=== PATIENT | male | born 1930 | race Caucasian/White ===

== ENCOUNTER 2016-11-11 21:23 | Inpatient (IN) | payer MEDICARE, OTHER ==
[~2016-11-11] VITALS: Ht 160 cm; Wt 61.9 kg
[2016-11-11] MEDS ORDERED: LEVO25TA4 PO (22:25)
[2016-11-11] MEDS ORDERED: TAMS0.4C97 PO (22:25)
[2016-11-11] MEDS ORDERED: QUET25TA5 PO (22:25)
[2016-11-11] MEDS ORDERED: PRAV80TA2 PO (22:25)
[2016-11-11] MEDS ORDERED: PRED50TA PO (22:25)
[2016-11-11] MEDS ORDERED: BUDE10.2 IH (22:25)
[2016-11-11] MEDS ORDERED: POLY119P4 PO (22:25)
[2016-11-11] MEDS ORDERED: DONE5TAB7 PO (22:25)
[2016-11-11] MEDS ORDERED: CARV6.252 PO (22:25)
[2016-11-11] MEDS ORDERED: LISI-334 PO (22:25)
[2016-11-11] MEDS ORDERED: CHOL10003 PO (22:25)
[2016-11-11] MEDS ORDERED: DOCU-109 PO (22:25)
[2016-11-11] MEDS ORDERED: ASPI81TA50 PO (22:25)
[2016-11-11] MEDS ORDERED: HYDR-2868 PO (22:25)
[2016-11-11] MEDS: LISINOPRIL 20 MG TABLET PO SCH (22:45)
[2016-11-11] MEDS: DONEPEZIL HCL 5 MG TABLET. PO SCH (22:45)
[2016-11-11] MEDS: hydrALAZINE 25 MG TABLET PO SCH (22:46)
--- NOTE | 2016-11-11 23:12 | PDOC ---
Exam Dev Demential Exam: Dev Note: Please also refer to the separate dictated note~for this date of service dictated separately.~Patient seen individually. Discussed the patient with Nursing staff reviewed the chart.~Reviewed interim history and current functioning. Reviewed vital signs,~Labs/ Radiology~and current medications noted below. Continue current treatment with the changes noted in the dictated addendum note Assessment: Vital Signs: Vital Signs Date Time Temp Pulse Resp B/P (MAP) Pulse Ox O2 Delivery O2 Flow Rate FiO2 11/11/16 22:46 92 202/100 Current Medications: Meds: Current Medications Donepezil HCl (Aricept) 5 mg QHS PO Last administered on 11/11/16 22:45; Start 11/11/16 at 22:45 Olanzapine (ZyPREXA ZYDIS) 2.5 mg PRN Q2HR PRN PO PSYCHOSIS Last administered on 11/11/16 22:47; Start 11/11/16 at 22:30 Melatonin 3 mg PRN QHS PRN PO INSOMNIA; Start 11/11/16 at 22:30 Hydralazine HCl (Apresoline) 25 mg BID PO Last administered on 11/11/16 22:46 ; Start 11/11/16 at 22:45 Lisinopril (Prinivil) 20 mg BID PO Last administered on 11/11/16 22:45; Start 11/11/16 at 22:45 Active Scripts Active Reported Flomax (Tamsulosin Hcl) 0.4 Mg Cap.er.24h 0.4 Mg PO DAILY Seroquel (Quetiapine Fumarate) 25 Mg Tablet 25 Mg PO DAILY Pravastatin Sodium 80 Mg Tablet 80 Mg PO DAILY Miralax (Polyethylene Glycol 3350) 119 Gm Powder 17 Gm PO DAILY Lisinopril 20 Mg Tablet 20 Mg PO BID Levothyroxine Sodium 25 Mcg Tablet 25 Mcg PO DAILY07 Hydralazine Hcl 25 Mg Tablet 25 Mg PO BID Donepezil Hcl 5 Mg Tablet 5 Mg PO QHS Colace (Docusate Sodium) 100 Mg Capsule 100 Mg PO PRN BID PRN Vitamin D3 (Cholecalciferol (Vitamin D3)) 1,000 Unit Tablet 1,000 Unit PO DAILY Carvedilol 6.25 Mg Tablet 6.25 Mg PO BIDWMEALS Symbicort 160-4.5 Mcg Inhaler (Budesonide/Formoterol Fumarate) 10.2 Gm Hfa.aer.ad 2 Puff IH BID Aspir-Low (Aspirin) 81 Mg Tablet. 81 Mg PO DAILY Prednisone 50 Mg Tablet 50 Mg PO DAILY 5 Days PATRIZIA HERBERT MD Nov 11, 2016 23:12
[2016-11-12 00:03] VITALS: BP 178/82
[2016-11-12 00:17] LABS: COLOR,URINE YELLOW
[2016-11-12 00:18] LABS: AMORPHOUS SEDIMENT,UR PRESENT /HPF; BACTERIA,URINE FEW /HPF (0-FEW); BILIRUBIN,URINE NEG (NEG); CLARITY,URINE CLEAR; GLUCOSE,URINE 100 mg/dL (NEG); HYALINE CASTS, URINE OCC /HPF; NITRITE,URINE NEG (NEG); RBC,URINE OCC /HPF (0-2); SQUAMOUS EPITHELIAL CELL,UR OCC /LPF; UROBILINOGEN,URINE 0.2 mg/dL (0.2 mg/dL); WBC,URINE OCC /HPF (0-4)
[2016-11-12 06:14] VITALS: BP 139/59
--- NOTE | 2016-11-12 07:22 | PDOC1 ---
History of Present Illness Reason for Visit: Behaviors History of Present Illness Pt sent to [facility] for evaluation in SBH unit due to abnormal behaviors in the setting of dementia. Pt had [facility] [place], [place]. His is present today and is a nurse. Pt was sent here from an OSH ER where he was diagnosed w/ a mild COPD exacerbation. Pt is a poor historian, and his gives all the history. She reports he has been complaining of an upset stomach (mild). He also has been more confused, and his BP seemed to go up when he was started on Seroquel and Aricept. He also has been having more drooling since starting those medicines. Chief Complaint: Dementia Allergies: Coded Allergies: morphine (Verified Allergy, Unknown, 11/11/16) Past Medical History Cardiac: HTN Pulmonary: COPD GI: GERD, Peptic Ulcer disease Past Surgical History: No pertinent history Family History: No pertinent hx Past Social History Smoke: Quit Alcohol: none Drugs: None Lives: with Family Review of Systems Review Of Systems ROS unreliable/unobtainable due to pt's dementia. Allergies: Coded Allergies: morphine (Verified Allergy, Unknown, 11/11/16) Medications Current Medications Donepezil HCl (Aricept) 5 mg QHS PO Last administered on 11/11/16 22:45; Start 11/11/16 at 22:45 Olanzapine (ZyPREXA ZYDIS) 2.5 mg PRN Q2HR PRN PO PSYCHOSIS Last administered on 11/11/16 22:47; Start 11/11/16 at 22:30 Melatonin 3 mg PRN QHS PRN PO INSOMNIA; Start 11/11/16 at 22:30 Hydralazine HCl (Apresoline) 25 mg BID PO Last administered on 11/11/16 22:46 ; Start 11/11/16 at 22:45 Lisinopril (Prinivil) 20 mg BID PO Last administered on 11/11/16 22:45; Start 11/11/16 at 22:45 Active Scripts Active Reported Flomax (Tamsulosin Hcl) 0.4 Mg Cap.er.24h 0.4 Mg PO DAILY Seroquel (Quetiapine Fumarate) 25 Mg Tablet 25 Mg PO DAILY Pravastatin Sodium 80 Mg Tablet 80 Mg PO DAILY Miralax (Polyethylene Glycol 3350) 119 Gm Powder 17 Gm PO DAILY Lisinopril 20 Mg Tablet 20 Mg PO BID Levothyroxine Sodium 25 Mcg Tablet 25 Mcg PO DAILY07 Hydralazine Hcl 25 Mg Tablet 25 Mg PO BID Donepezil Hcl 5 Mg Tablet 5 Mg PO QHS Colace (Docusate Sodium) 100 Mg Capsule 100 Mg PO PRN BID PRN Vitamin D3 (Cholecalciferol (Vitamin D3)) 1,000 Unit Tablet 1,000 Unit PO DAILY Carvedilol 6.25 Mg Tablet 6.25 Mg PO BIDWMEALS Symbicort 160-4.5 Mcg Inhaler (Budesonide/Formoterol Fumarate) 10.2 Gm Hfa.aer.ad 2 Puff IH BID Aspir-Low (Aspirin) 81 Mg Tablet. 81 Mg PO DAILY Prednisone 50 Mg Tablet 50 Mg PO DAILY 5 Days Exam Vital Signs Vital Signs Date Time Temp Pulse Resp B/P (MAP) Pulse Ox O2 Delivery O2 Flow Rate FiO2 11/12/16 06:14 97.9 57 20 139/59 (85) 95 11/12/16 00:03 Room Air General Appearance: Alert, Cooperative, No acute distress HEENT: Atraumatic, PERRLA, EOMI, Mucous membr. moist/pink, Other (Neck supple, full ROM, no JVD, no LAD) Respiratory: Other (Breath sounds diffusely diminished but clear without wheezes) Heart: Regular rate, Normal S1, Normal S2, No murmurs Abdominal: Soft, No tenderness, No hepatospenomegaly Extremities: No edema, Normal pulses, No tenderness/swelling Skin: No rashes, No breakdown Neuro: Other (Gait slow but steady w/ walker, no other focal neuro deficits) Psych/Mental Status: Mood NL Assessment/Plan Assessment/Plan 1. Dementia w/ behavioral disturbances: Per Dr. Alves 2. COPD: Does not appear to be in acute exacerbation. Will d/c prednisone, has only had 1 dose. Hopefully that will reduce chance of PUD and improved BP. 3. HTN: Improved. Will cont to monitor. Cont home meds. If goes back up on Risperdal, may need to d/c all antipsychotics. 4. GERD/PUD: STart Protonix, d/c prednisone. 5. DVT proph: Pt fully ambulatory, no indication for blood thinners. COURSE Allergies Coded Allergies Type Severity Reaction Last Updated Verified morphine Allergy Unknown 11/11/16 Yes Laboratory Tests Test 11/11/16 23:45 Urine Collection Type Unknown Urine Color Yellow Urine Clarity Clear Urine pH 5.5 Urine Specific [place] 1.020 Urine Protein Trace (NEG-TRACE) Urine Glucose (UA) 100 mg/dL (NEG) Urine Ketones (Stick) Neg mg/dL (NEG) Urine Blood Neg (NEG) Urine Nitrite Neg (NEG) Urine Bilirubin Neg (NEG) Urine Urobilinogen Dipstick 0.2 mg/dL (0.2 mg/dL) Urine Leukocyte Esterase Neg (NEG) Urine RBC Occ /HPF (0-2) Urine WBC Occ /HPF (0-4) Urine Squamous Epithelial Cells Occ /LPF Urine Amorphous Sediment Present /HPF Urine Bacteria Few /HPF (0-FEW) Urine Hyaline Casts Occ /HPF Urine Mucus Slight /LPF Current Medications Medications (Trade) Dose Ordered Sig/Jennie Route PRN Reason Start Time Stop Time Status Last Admin Dose Admin Donepezil HCl (Aricept) 5 mg QHS PO 11/11/16 22:45 11/11/16 22:45 Olanzapine (ZyPREXA ZYDIS) 2.5 mg PRN Q2HR PRN PO PSYCHOSIS 11/11/16 22:30 11/11/16 22:47 Melatonin 3 mg PRN QHS PRN PO INSOMNIA 11/11/16 22:30 Hydralazine HCl (Apresoline) 25 mg BID PO 11/11/16 22:45 11/11/16 22:46 Lisinopril (Prinivil) 20 mg BID PO 11/11/16 22:45 11/11/16 22:45 Vital Signs Date Time Temp Pulse Resp B/P (MAP) Pulse Ox O2 Delivery O2 Flow Rate FiO2 11/12/16 06:14 97.9 57 20 139/59 (85) 95 11/12/16 00:03 Room Air HELADIO BLEVINS MD Nov 12, 2016 07:22
[2016-11-12] MEDS ORDERED: DOCUSATE SODIUM 100 MG CAPSULE PO PRN (07:30)
[2016-11-12 07:52] LABS: BASO # 0.1 x10^3/uL (0.0-0.2); BASO % 1 % (0-3); EOS % 0 % (0-3); HEMATOCRIT 47.8 % (39.0-53.0); HEMOGLOBIN 16.3 g/dL (13.0-17.5); LYMPH # 1.1 x10^3/uL (1.0-4.8); LYMPH % 9 % (24-48); MEAN CORPUSCULAR HEMOGLOBIN 30 pg (25-35); MEAN CORPUSCULAR HGB CONC 34 g/dL (31-37); MEAN CORPUSCULAR VOLUME 89 fL (79-100); MONO # 1.2 x10^3/uL (0.0-1.1); MONO % 9 % (0-9); NEUT # 10.3 x10^3uL (1.8-7.7); NEUT % 81 % (31-73); PLATELET COUNT 242 x10^3/uL (140-400); RED BLOOD COUNT 5.38 x10^6/uL (4.30-5.70); RED CELL DISTRIBUTION WIDTH 14.5 % (11.5-14.5); WHITE BLOOD COUNT 12.6 x10^3/uL (4.0-11.0)
[2016-11-12] MEDS: hydrALAZINE 25 MG TABLET PO SCH ×2 (07:56→19:38)
[2016-11-12] MEDS: LISINOPRIL 20 MG TABLET PO SCH ×2 (07:56→19:38)
[2016-11-12] MEDS: CARVEDILOL 6.25 MG TABLET PO SCH ×2 (07:59→17:00)
[2016-11-12] MEDS: CHOLECALCIFEROL (VITAMIN D3) 1,000 UNIT TABLET PO SCH (07:59)
[2016-11-12] MEDS: ASPIRIN ENTERIC COATED 81 MG TABLET.DR. PO SCH (07:59)
[2016-11-12] MEDS: POLYETHYLENE GLYCOL 3350 17 GM PACKET. PO SCH (08:03)
[2016-11-12] MEDS: LEVOTHYROXINE 25 MCG TABLET. PO SCH (08:03)
[2016-11-12] MEDS: TAMSULOSIN 0.4 MG CAP.ER.24H. PO SCH (08:03)
[2016-11-12 08:15] LABS: ALBUMIN 3.5 g/dL (3.4-5.0); ALBUMIN/GLOBULIN RATIO 1.3 (1.0-1.7); CALCIUM 8.8 mg/dL (8.5-10.1); CREATININE 1.1 mg/dL (0.7-1.3); GFR 63.2; POTASSIUM 3.9 mmol/L (3.5-5.1); TOTAL BILIRUBIN 0.6 mg/dL (0.2-1.0); TOTAL PROTEIN 6.1 g/dL (6.4-8.2)
[2016-11-12] MEDS ORDERED: NON FORMULARY ITEM (Budesonide/Formoterol Fumarate (Symbicort 160-4.5 Mcg Inhaler) 2 PUFF) IH SCH (09:00)
[2016-11-12] MEDS ORDERED: predniSONE 10 MG TABLET PO SCH (09:00)
[2016-11-12 10:08] LABS: THYROID STIM HORMONE (TSH) 2.893 uIU/mL (0.358-3.740)
[2016-11-12] MEDS: BUDESONIDE 0.5 MG/2 ML NEBU NEB SCH ×2 (11:11→20:33)
[2016-11-12] MEDS: ALBUTEROL SULFATE 2.5 MG/3 ML NEBU. NEB SCH ×3 (11:11→20:34)
[2016-11-12 12:07] LABS: T3 TOTAL 57 ng/dL (71-180); THYROXINE 7.4 ug/dL (4.5-12.0)
[2016-11-12 17:24] VITALS: BP 152/81
[2016-11-12] MEDS: PRAVASTATIN 20 MG TABLET. PO SCH (19:38)
[2016-11-12] MEDS: DONEPEZIL HCL 5 MG TABLET. PO SCH (19:38)
--- NOTE | 2016-11-12 20:18 | PDOC ---
Exam Dev Demential Exam: Dev Note: Please also refer to the separate dictated note~for this date of service dictated separately.~Patient seen individually. Discussed the patient with Nursing staff reviewed the chart.~Reviewed interim history and current functioning. Reviewed vital signs,~Labs/ Radiology~and current medications noted below. Continue current treatment with the changes noted in the dictated addendum note Assessment: Vital Signs: Vital Signs Date Time Temp Pulse Resp B/P (MAP) Pulse Ox O2 Delivery O2 Flow Rate FiO2 11/12/16 19:38 61 152/81 11/12/16 17:24 98.6 18 94 11/12/16 16:05 Room Air I&O Intake and Output 11/12/16 07:00 Output Total 200 ml Balance -200 ml Output Urine Total 200 ml Labs: Laboratory Tests Test 11/11/16 23:45 11/12/16 07:30 Urine Collection Type Unknown Urine Color Yellow Urine Clarity Clear Urine pH 5.5 Urine Specific [place] 1.020 Urine Protein Trace (NEG-TRACE) Urine Glucose (UA) 100 mg/dL (NEG) Urine Ketones (Stick) Neg mg/dL (NEG) Urine Blood Neg (NEG) Urine Nitrite Neg (NEG) Urine Bilirubin Neg (NEG) Urine Urobilinogen Dipstick 0.2 mg/dL (0.2 mg/dL) Urine Leukocyte Esterase Neg (NEG) Urine RBC Occ /HPF (0-2) Urine WBC Occ /HPF (0-4) Urine Squamous Epithelial Cells Occ /LPF Urine Amorphous Sediment Present /HPF Urine Bacteria Few /HPF (0-FEW) Urine Hyaline Casts Occ /HPF Urine Mucus Slight /LPF White Blood Count 12.6 x10^3/uL (4.0-11.0) H Red Blood Count 5.38 x10^6/uL (4.30-5.70) Hemoglobin 16.3 g/dL (13.0-17.5) Hematocrit 47.8 % (39.0-53.0) Mean Corpuscular Volume 89 fL (79-100) Mean Corpuscular Hemoglobin 30 pg (25-35) Mean Corpuscular Hemoglobin Concent 34 g/dL (31-37) Red Cell Distribution Width 14.5 % (11.5-14.5) Platelet Count 242 x10^3/uL (140-400) Neutrophils (%) (Auto) 81 % (31-73) H Lymphocytes (%) (Auto) 9 % (24-48) L Monocytes (%) (Auto) 9 % (0-9) Eosinophils (%) (Auto) 0 % (0-3) Basophils (%) (Auto) 1 % (0-3) Neutrophils # (Auto) 10.3 x10^3uL (1.8-7.7) H Lymphocytes # (Auto) 1.1 x10^3/uL (1.0-4.8) Monocytes # (Auto) 1.2 x10^3/uL (0.0-1.1) H Eosinophils # (Auto) 0.0 x10^3/uL (0.0-0.7) Basophils # (Auto) 0.1 x10^3/uL (0.0-0.2) Sodium Level 132 mmol/L (136-145) L Potassium Level 3.9 mmol/L (3.5-5.1) Chloride Level 98 mmol/L (98-107) Carbon Dioxide Level 26 mmol/L (21-32) Anion Gap 8 (6-14) Blood Urea Nitrogen 17 mg/dL (8-26) Creatinine 1.1 mg/dL (0.7-1.3) Estimated GFR (Cockcroft-Gault) 63.2 BUN/Creatinine Ratio 15 (6-20) Glucose Level 146 mg/dL (70-99) H Calcium Level 8.8 mg/dL (8.5-10.1) Magnesium Level 2.0 mg/dL (1.8-2.4) Iron Level 55 ug/dL (65-175) L Total Iron Binding Capacity 258 ug/dL (250-450) Iron Saturation 21 % (15-34) Total Bilirubin 0.6 mg/dL (0.2-1.0) Aspartate Amino Transferase (AST) 20 U/L (15-37) Alanine Aminotransferase (ALT) 25 U/L (16-63) Alkaline Phosphatase 90 U/L (46-116) Total Protein 6.1 g/dL (6.4-8.2) L Albumin 3.5 g/dL (3.4-5.0) Albumin/Globulin Ratio 1.3 (1.0-1.7) Triglycerides Level 60 mg/dL (0-150) Cholesterol Level 158 mg/dL (0-200) LDL Cholesterol, Calculated 79 mg/dL (0-100) VLDL Cholesterol, Calculated 12 mg/dL (0-40) Non-HDL Cholesterol Calculated 91 mg/dL (0-129) HDL Cholesterol 67 mg/dL (40-60) H Cholesterol/HDL Ratio 2.0 25-Hydroxy Vitamin D Total Pending Thyroid Stimulating Hormone (TSH) 2.893 uIU/mL (0.358-3.740) Thyroxine (T4) 7.4 ug/dL (4.5-12.0) Total Triiodothyronine (TT3) 57 ng/dL (71-180) L RPR Titer Additional Testing Pending Current Medications: Meds: Current Medications Donepezil HCl (Aricept) 5 mg QHS PO Last administered on 11/12/16 19:38; Start 11/11/16 at 22:45 Olanzapine (ZyPREXA ZYDIS) 2.5 mg PRN Q2HR PRN PO PSYCHOSIS Last administered on 11/11/16 22:47; Start 11/11/16 at 22:30 Melatonin 3 mg PRN QHS PRN PO INSOMNIA; Start 11/11/16 at 22:30 Hydralazine HCl (Apresoline) 25 mg BID PO Last administered on 11/12/16 19:38 ; Start 11/11/16 at 22:45 Lisinopril (Prinivil) 20 mg BID PO Last administered on 11/12/16 19:38; Start 11/11/16 at 22:45 Aspirin (Aspirin Enteric Coated) 81 mg DAILY PO Last administered on 11/12/16 07:59; Start 11/12/16 at 09:00 Carvedilol (Coreg) 6.25 mg BIDWMEALS PO Last administered on 11/12/16 17:00; Start 11/12/16 at 08:00 Vitamin D (Vitamin D3) 1,000 unit DAILY PO Last administered on 11/12/16 07:59 ; Start 11/12/16 at 09:00 Docusate Sodium (Colace) 100 mg PRN BID PRN PO CONSTIPATION; Start 11/12/16 at 07:30 Levothyroxine Sodium (Synthroid) 25 mcg DAILY07 PO Last administered on 08:03; Start 11/12/16 at 07:45 Polyethylene Glycol (miraLAX) 17 gm DAILY PO Last administered on 11/12/16 08: 03; Start 11/12/16 at 09:00 Tamsulosin HCl (Flomax) 0.4 mg DAILY PO Last administered on 11/12/16 08:03; Start 11/12/16 at 09:00 Non-Formulary Medication 2 puff BID IH ; Start 11/12/16 at 09:00; Stop 11/12/16 at 09:00; Status DC Pravastatin Sodium (Pravachol) 80 mg QHS PO Last administered on 11/12/16 19: 38; Start 11/12/16 at 21:00 Prednisone (Prednisone) 50 mg DAILY PO Last administered on 11/12/16 08:03; Start 11/12/16 at 09:00; Stop 11/12/16 at 16:59; Status DC Albuterol Sulfate (Ventolin) 2.5 mg RTQID NEB Last administered on 11/12/16 16 :05; Start 11/12/16 at 12:00 Budesonide (Pulmicort) 0.5 mg RTBID NEB Last administered on 11/12/16 11:11; Start 11/12/16 at 08:30 Pantoprazole Sodium (Protonix) 40 mg DAILYAC PO ; Start 11/13/16 at 07:30 Active Scripts Active Reported Flomax (Tamsulosin Hcl) 0.4 Mg Cap.er.24h 0.4 Mg PO DAILY Seroquel (Quetiapine Fumarate) 25 Mg Tablet 25 Mg PO DAILY Pravastatin Sodium 80 Mg Tablet 80 Mg PO DAILY Miralax (Polyethylene Glycol 3350) 119 Gm Powder 17 Gm PO DAILY Lisinopril 20 Mg Tablet 20 Mg PO BID Levothyroxine Sodium 25 Mcg Tablet 25 Mcg PO DAILY07 Hydralazine Hcl 25 Mg Tablet 25 Mg PO BID Donepezil Hcl 5 Mg Tablet 5 Mg PO QHS Colace (Docusate Sodium) 100 Mg Capsule 100 Mg PO PRN BID PRN Vitamin D3 (Cholecalciferol (Vitamin D3)) 1,000 Unit Tablet 1,000 Unit PO DAILY Carvedilol 6.25 Mg Tablet 6.25 Mg PO BIDWMEALS Symbicort 160-4.5 Mcg Inhaler (Budesonide/Formoterol Fumarate) 10.2 Gm Hfa.aer.ad 2 Puff IH BID Aspir-Low (Aspirin) 81 Mg Tablet. 81 Mg PO DAILY Prednisone 50 Mg Tablet 50 Mg PO DAILY 5 Days PATRIZIA HERBERT MD Nov 12, 2016 20:18
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
[2016-11-12] MEDS: MELATONIN 3 MG TABLET PO PRN (22:26)
[2016-11-13 02:06] LABS: HEMOGLOBIN A1C 5.7 % (4.8-5.6)
--- NOTE | 2016-11-13 05:37 | ACF ---
Admit Criteria Forms Admit Criteria Forms Admit Criteria Forms PSYCHIATRIC DISORDERS Clinical Indications for Inpatient Care (Place 'X' for any and all applicable criteria): Ongoing inpatient care may be needed for 1 or more of the following(1)(2)(3)(4)( 6)(7)(8): [ ]I. Danger to self or others not manageable at lower level of care. [ ]II. Grave disability (eg, inability to perform self care necessary at lower level of care) [ ]III. Agitation or inappropriate behavior interfering with care for primary condition (eg, attempting to discontinue lines or drains prematurely, unable to cooperate with respiratory care) [X]IV. Severe disability or disorder indicated by ALL of the following: [X]a) Severe behavioral health disorder-related symptoms or condition indicated by 1 or more of the following: [X]i) Severe problem with cognition, memory, judgment, or impulse control [ ]ii) Severe clinical manifestations (eg, hallucinations, delusions, other acute psychotic symptoms, edilberto, extreme agitation or anxiety) [X]b) Patient management at lower level of care is not feasible until acute intervention or modification is initiated. Extended stay beyond goal length of stay for the primary condition may be needed untilALLof the following are present(1)(2)(3)(4)722)(23): [ ]a) Danger to self or others is absent or manageable at lower level of care [ ]b) Behavior crisis management, including physical or chemical restraints, is required and is not available at a lower level of care. [ ]c) Behavioral symptoms (e.g., agitation, somnolence, inappropriate behavior) are present, and are not manageable at a lower level of care. [ ]d) Patient cannot understand follow-up treatment and crisis plan. [ ]e) Provider and supports are sufficiently available at lower level of care. [ ]f) Patient can participate (e.g., verify absence of plan for harm) and is in needed of monitoring. The original [facility] [employer] content created by [facility] [employer] has been revised. The portions of the content which have been revised are identified through the use of italic text, and [facility] [employer] has neither reviewed nor approved the modified material. All other unmodified content is copyright [facility]. Please see references footnoted in the original [facility] edition 2014 LULU MCKEON Nov 13, 2016 05:37
[2016-11-13] MEDS: LEVOTHYROXINE 25 MCG TABLET. PO SCH (05:45)
[2016-11-13 06:08] VITALS: BP 142/80
[2016-11-13] MEDS: ALBUTEROL SULFATE 2.5 MG/3 ML NEBU. NEB SCH ×4 (06:15→21:03)
[2016-11-13] MEDS: BUDESONIDE 0.5 MG/2 ML NEBU NEB SCH ×2 (06:15→21:03)
[2016-11-13] MEDS: PANTOPRAZOLE 40 MG TABLET. PO SCH (07:42)
[2016-11-13] MEDS: TAMSULOSIN 0.4 MG CAP.ER.24H. PO SCH (09:06)
[2016-11-13] MEDS: hydrALAZINE 25 MG TABLET PO SCH ×2 (09:06→20:08)
[2016-11-13] MEDS: ASPIRIN ENTERIC COATED 81 MG TABLET.DR. PO SCH (09:06)
[2016-11-13] MEDS: CARVEDILOL 6.25 MG TABLET PO SCH ×2 (09:06→16:24)
[2016-11-13] MEDS: CHOLECALCIFEROL (VITAMIN D3) 1,000 UNIT TABLET PO SCH (09:07)
[2016-11-13] MEDS: LISINOPRIL 20 MG TABLET PO SCH ×2 (09:07→20:08)
[2016-11-13] MEDS: POLYETHYLENE GLYCOL 3350 17 GM PACKET. PO SCH (09:08)
[2016-11-13 16:47] VITALS: BP 151/77
[2016-11-13] MEDS: DONEPEZIL HCL 5 MG TABLET. PO SCH (20:08)
[2016-11-13] MEDS: PRAVASTATIN 20 MG TABLET. PO SCH (20:09)
[2016-11-13] MEDS: MELATONIN 3 MG TABLET PO PRN (20:10)
--- NOTE | 2016-11-13 20:16 | PDOC ---
Exam Dev Demential Exam: Dev Note: Please also refer to the separate dictated note~for this date of service dictated separately.~Patient seen individually. Discussed the patient with Nursing staff reviewed the chart.~Reviewed interim history and current functioning. Reviewed vital signs,~Labs/ Radiology~and current medications noted below. Continue current treatment with the changes noted in the dictated addendum note Assessment: Vital Signs: Vital Signs Date Time Temp Pulse Resp B/P (MAP) Pulse Ox O2 Delivery O2 Flow Rate FiO2 11/13/16 20:08 80 151/77 11/13/16 16:47 97.4 20 95 11/13/16 16:29 Room Air I&O Intake and Output 11/13/16 07:00 Intake Total 540 ml Balance 540 ml Intake Oral 540 ml Current Medications: Meds: Current Medications Donepezil HCl (Aricept) 5 mg QHS PO Last administered on 11/13/16 20:08; Start 11/11/16 at 22:45 Olanzapine (ZyPREXA ZYDIS) 2.5 mg PRN Q2HR PRN PO PSYCHOSIS Last administered on 11/13/16 20:10; Start 11/11/16 at 22:30 Melatonin 3 mg PRN QHS PRN PO INSOMNIA Last administered on 11/13/16 20:10; Start 11/11/16 at 22:30 Hydralazine HCl (Apresoline) 25 mg BID PO Last administered on 11/13/16 20:08 ; Start 11/11/16 at 22:45 Lisinopril (Prinivil) 20 mg BID PO Last administered on 11/13/16 20:08; Start 11/11/16 at 22:45 Aspirin (Aspirin Enteric Coated) 81 mg DAILY PO Last administered on 11/13/16 09:06; Start 11/12/16 at 09:00 Carvedilol (Coreg) 6.25 mg BIDWMEALS PO Last administered on 11/13/16 16:24; Start 11/12/16 at 08:00 Vitamin D (Vitamin D3) 1,000 unit DAILY PO Last administered on 11/13/16 09:07 ; Start 11/12/16 at 09:00 Docusate Sodium (Colace) 100 mg PRN BID PRN PO CONSTIPATION; Start 11/12/16 at 07:30 Levothyroxine Sodium (Synthroid) 25 mcg DAILY07 PO Last administered on 05:45; Start 11/12/16 at 07:45; Stop 11/13/16 at 15:15; Status DC Polyethylene Glycol (miraLAX) 17 gm DAILY PO Last administered on 11/13/16 09: 08; Start 11/12/16 at 09:00 Tamsulosin HCl (Flomax) 0.4 mg DAILY PO Last administered on 11/13/16 09:06; Start 11/12/16 at 09:00 Non-Formulary Medication 2 puff BID IH ; Start 11/12/16 at 09:00; Stop 11/12/16 at 09:00; Status DC Pravastatin Sodium (Pravachol) 80 mg QHS PO Last administered on 11/13/16 20: 09; Start 11/12/16 at 21:00 Prednisone (Prednisone) 50 mg DAILY PO Last administered on 11/12/16 08:03; Start 11/12/16 at 09:00; Stop 11/12/16 at 16:59; Status DC Albuterol Sulfate (Ventolin) 2.5 mg RTQID NEB Last administered on 11/13/16 16 :28; Start 11/12/16 at 12:00 Budesonide (Pulmicort) 0.5 mg RTBID NEB Last administered on 11/13/16 06:15; Start 11/12/16 at 08:30 Pantoprazole Sodium (Protonix) 40 mg DAILYAC PO Last administered on 11/13/16 07:42; Start 11/13/16 at 07:30 Levothyroxine Sodium (Synthroid) 25 mcg DAILY06 PO ; Start 11/14/16 at 06:00 Sertraline HCl (Zoloft) 25 mg DAILY PO ; Start 11/14/16 at 09:00 Donepezil HCl (Aricept) 10 mg DAILY PO ; Start 11/14/16 at 09:00 Active Scripts Active Reported Flomax (Tamsulosin Hcl) 0.4 Mg Cap.er.24h 0.4 Mg PO DAILY Seroquel (Quetiapine Fumarate) 25 Mg Tablet 25 Mg PO DAILY Pravastatin Sodium 80 Mg Tablet 80 Mg PO DAILY Miralax (Polyethylene Glycol 3350) 119 Gm Powder 17 Gm PO DAILY Lisinopril 20 Mg Tablet 20 Mg PO BID Levothyroxine Sodium 25 Mcg Tablet 25 Mcg PO DAILY07 Hydralazine Hcl 25 Mg Tablet 25 Mg PO BID Donepezil Hcl 5 Mg Tablet 5 Mg PO QHS Colace (Docusate Sodium) 100 Mg Capsule 100 Mg PO PRN BID PRN Vitamin D3 (Cholecalciferol (Vitamin D3)) 1,000 Unit Tablet 1,000 Unit PO DAILY Carvedilol 6.25 Mg Tablet 6.25 Mg PO BIDWMEALS Symbicort 160-4.5 Mcg Inhaler (Budesonide/Formoterol Fumarate) 10.2 Gm Hfa.aer.ad 2 Puff IH BID Aspir-Low (Aspirin) 81 Mg Tablet.dr 81 Mg PO DAILY Prednisone 50 Mg Tablet 50 Mg PO DAILY 5 Days PATRIZIA HERBERT MD Nov 13, 2016 20:16
[2016-11-14 05:26] VITALS: BP 147/67
[2016-11-14] MEDS: LEVOTHYROXINE 25 MCG TABLET. PO SCH (05:35)
[2016-11-14] MEDS: ALBUTEROL SULFATE 2.5 MG/3 ML NEBU. NEB SCH ×4 (06:08→20:34)
[2016-11-14] MEDS: BUDESONIDE 0.5 MG/2 ML NEBU NEB SCH ×2 (08:16→20:34)
[2016-11-14] MEDS: ASPIRIN ENTERIC COATED 81 MG TABLET.DR. PO SCH (08:50)
[2016-11-14] MEDS: LISINOPRIL 20 MG TABLET PO SCH ×2 (08:50→20:21)
[2016-11-14] MEDS: CHOLECALCIFEROL (VITAMIN D3) 1,000 UNIT TABLET PO SCH (08:50)
[2016-11-14] MEDS: TAMSULOSIN 0.4 MG CAP.ER.24H. PO SCH (08:50)
[2016-11-14] MEDS: CARVEDILOL 6.25 MG TABLET PO SCH ×2 (08:51→16:01)
[2016-11-14] MEDS: hydrALAZINE 25 MG TABLET PO SCH ×2 (08:51→20:15)
[2016-11-14] MEDS: POLYETHYLENE GLYCOL 3350 17 GM PACKET. PO SCH (08:51)
[2016-11-14] MEDS: DONEPEZIL HCL 10 MG TABLET PO SCH (08:52)
[2016-11-14] MEDS: PANTOPRAZOLE 40 MG TABLET. PO SCH (08:53)
[2016-11-14] MEDS ORDERED: SERTRALINE 25 MG TABLET. PO SCH (09:00)
[2016-11-14 16:22] VITALS: BP 149/86
--- NOTE | 2016-11-14 19:50 | PDOC ---
Exam Dev Demential Exam: Dev Note: Please also refer to the separate dictated note~for this date of service dictated separately.~Patient seen individually. Discussed the patient with Nursing staff reviewed the chart.~Reviewed interim history and current functioning. Reviewed vital signs,~Labs/ Radiology~and current medications noted below. Continue current treatment with the changes noted in the dictated addendum note Assessment: Vital Signs: Vital Signs Date Time Temp Pulse Resp B/P (MAP) Pulse Ox O2 Delivery O2 Flow Rate FiO2 11/14/16 16:22 97.4 81 18 149/86 (107) 99 11/14/16 15:41 Room Air 11/14/16 08:16 2.0 I&O Intake and Output 11/14/16 07:00 Intake Total 960 ml Balance 960 ml Intake Oral 960 ml Current Medications: Meds: Current Medications Donepezil HCl (Aricept) 5 mg QHS PO Last administered on 11/13/16 20:08; Start 11/11/16 at 22:45; Stop 11/14/16 at 18:15; Status DC Olanzapine (ZyPREXA ZYDIS) 2.5 mg PRN Q2HR PRN PO PSYCHOSIS Last administered on 11/13/16 20:10; Start 11/11/16 at 22:30 Melatonin 3 mg PRN QHS PRN PO INSOMNIA Last administered on 11/13/16 20:10; Start 11/11/16 at 22:30 Hydralazine HCl (Apresoline) 25 mg BID PO Last administered on 11/14/16 08:51 ; Start 11/11/16 at 22:45 Lisinopril (Prinivil) 20 mg BID PO Last administered on 11/14/16 08:50; Start 11/11/16 at 22:45 Aspirin (Aspirin Enteric Coated) 81 mg DAILY PO Last administered on 11/14/16 08:50; Start 11/12/16 at 09:00 Carvedilol (Coreg) 6.25 mg BIDWMEALS PO Last administered on 11/14/16 16:01; Start 11/12/16 at 08:00 Vitamin D (Vitamin D3) 1,000 unit DAILY PO Last administered on 11/14/16 08:50 ; Start 11/12/16 at 09:00 Docusate Sodium (Colace) 100 mg PRN BID PRN PO CONSTIPATION; Start 11/12/16 at 07:30 Levothyroxine Sodium (Synthroid) 25 mcg DAILY07 PO Last administered on 05:45; Start 11/12/16 at 07:45; Stop 11/13/16 at 15:15; Status DC Polyethylene Glycol (miraLAX) 17 gm DAILY PO Last administered on 11/14/16 08: 51; Start 11/12/16 at 09:00 Tamsulosin HCl (Flomax) 0.4 mg DAILY PO Last administered on 11/14/16 08:50; Start 11/12/16 at 09:00 Non-Formulary Medication 2 puff BID IH ; Start 11/12/16 at 09:00; Stop 11/12/16 at 09:00; Status DC Pravastatin Sodium (Pravachol) 80 mg QHS PO Last administered on 11/13/16 20: 09; Start 11/12/16 at 21:00 Prednisone (Prednisone) 50 mg DAILY PO Last administered on 11/12/16 08:03; Start 11/12/16 at 09:00; Stop 11/12/16 at 16:59; Status DC Albuterol Sulfate (Ventolin) 2.5 mg RTQID NEB Last administered on 11/14/16 15 :40; Start 11/12/16 at 12:00 Budesonide (Pulmicort) 0.5 mg RTBID NEB Last administered on 11/14/16 08:16; Start 11/12/16 at 08:30 Pantoprazole Sodium (Protonix) 40 mg DAILYAC PO Last administered on 11/14/16 08:53; Start 11/13/16 at 07:30 Levothyroxine Sodium (Synthroid) 25 mcg DAILY06 PO Last administered on 05:35; Start 11/14/16 at 06:00 Sertraline HCl (Zoloft) 25 mg DAILY PO Last administered on 11/14/16 08:52; Start 11/14/16 at 09:00; Stop 11/14/16 at 18:15; Status DC Donepezil HCl (Aricept) 10 mg DAILY PO Last administered on 11/14/16 08:52; Start 11/14/16 at 09:00 Sertraline HCl (Zoloft) 50 mg DAILY PO ; Start 11/15/16 at 09:00 Active Scripts Active Reported Flomax (Tamsulosin Hcl) 0.4 Mg Cap.er.24h 0.4 Mg PO DAILY Seroquel (Quetiapine Fumarate) 25 Mg Tablet 25 Mg PO DAILY Pravastatin Sodium 80 Mg Tablet 80 Mg PO DAILY Miralax (Polyethylene Glycol 3350) 119 Gm Powder 17 Gm PO DAILY Lisinopril 20 Mg Tablet 20 Mg PO BID Levothyroxine Sodium 25 Mcg Tablet 25 Mcg PO DAILY07 Hydralazine Hcl 25 Mg Tablet 25 Mg PO BID Donepezil Hcl 5 Mg Tablet 5 Mg PO QHS Colace (Docusate Sodium) 100 Mg Capsule 100 Mg PO PRN BID PRN Vitamin D3 (Cholecalciferol (Vitamin D3)) 1,000 Unit Tablet 1,000 Unit PO DAILY Carvedilol 6.25 Mg Tablet 6.25 Mg PO BIDWMEALS Symbicort 160-4.5 Mcg Inhaler (Budesonide/Formoterol Fumarate) 10.2 Gm Hfa.aer.ad 2 Puff IH BID Aspir-Low (Aspirin) 81 Mg Tablet. 81 Mg PO DAILY Prednisone 50 Mg Tablet 50 Mg PO DAILY 5 Days PATRIZIA HERBERT MD Nov 14, 2016 19:50
[2016-11-14] MEDS: PRAVASTATIN 20 MG TABLET. PO SCH (20:15)
[2016-11-14] MEDS: MELATONIN 3 MG TABLET PO PRN (20:22)
--- NOTE | 2016-11-15 04:24 | PN ---
DATE: 11/13/2016 This late entry 11/13/2016 covers elements not covered in my initial note. SUBJECTIVE: I met with the patient evening of 11/13/2016, and met with his as well. The patient has been intermittently agitated with some mood lability, received Zyprexa at 15:16 when he was agitated about his walker. He takes his medications in yogurt. Somewhat confused morning of 11/13/2016, felt he was in the police station. REVIEW OF SYSTEMS: Ambulation impaired with walker. No CV, , pulmonary, eye, ENT system symptoms on review. MENTAL STATUS EXAM: Oriented to himself and situation. Speech has some latency, coherent. Abstraction fair, computation impaired, language function intact, attention span short. Mood and affect, lability is improved. Discussed the patient's diagnosis, progress with his . His is quite a bit younger than him and was able to express that if he had a who was about his age, she would not be able to navigate the medical system, advocate for him and provide for his care like she is able to. She herself is a nurse, which is an added advantage for the patient. LABORATORY DATA: Reviewed. IMPRESSION: Unchanged from initial note. PLAN: Increase Aricept from 5 mg a day to 10 mg a day, start Zoloft 25 mg a day. Continue melatonin along with Zyprexa p.r.n. Adjust further as clinically indicated. PATRIZIA HERBERT MD DR: SONIA/marianna JOB#: [id number] / [id number]
[2016-11-15] MEDS: LEVOTHYROXINE 25 MCG TABLET. PO SCH (05:13)
[2016-11-15] MEDS: ALBUTEROL SULFATE 2.5 MG/3 ML NEBU. NEB SCH ×4 (05:20→20:28)
[2016-11-15 06:23] VITALS: BP 163/58
[2016-11-15] MEDS: PANTOPRAZOLE 40 MG TABLET. PO SCH (07:43)
[2016-11-15] MEDS: LISINOPRIL 20 MG TABLET PO SCH ×2 (08:16→20:56)
[2016-11-15] MEDS: CARVEDILOL 6.25 MG TABLET PO SCH ×2 (08:16→15:52)
[2016-11-15] MEDS: DONEPEZIL HCL 10 MG TABLET PO SCH (08:16)
[2016-11-15] MEDS: ASPIRIN ENTERIC COATED 81 MG TABLET.DR. PO SCH (08:16)
[2016-11-15] MEDS: hydrALAZINE 25 MG TABLET PO SCH ×2 (08:17→20:55)
[2016-11-15] MEDS: POLYETHYLENE GLYCOL 3350 17 GM PACKET. PO SCH (08:17)
[2016-11-15] MEDS: CHOLECALCIFEROL (VITAMIN D3) 1,000 UNIT TABLET PO SCH (08:17)
[2016-11-15] MEDS: TAMSULOSIN 0.4 MG CAP.ER.24H. PO SCH (08:19)
[2016-11-15] MEDS: SERTRALINE 50 MG TABLET. PO SCH (08:19)
[2016-11-15] MEDS: BUDESONIDE 0.5 MG/2 ML NEBU NEB SCH ×2 (09:48→20:28)
[2016-11-15 16:27] VITALS: BP 134/74
--- NOTE | 2016-11-15 19:47 | PDOC ---
Exam Dev Demential Exam: Dev Note: Please also refer to the separate dictated note~for this date of service dictated separately.~Patient seen individually. Discussed the patient with Nursing staff reviewed the chart.~Reviewed interim history and current functioning. Reviewed vital signs,~Labs/ Radiology~and current medications noted below. Continue current treatment with the changes noted in the dictated addendum note Assessment: Vital Signs: Vital Signs Date Time Temp Pulse Resp B/P (MAP) Pulse Ox O2 Delivery O2 Flow Rate FiO2 11/15/16 16:27 97.8 62 18 134/74 (94) 96 11/15/16 15:38 Room Air 11/15/16 05:20 0.0 I&O Intake and Output 11/15/16 07:00 Intake Total 1080 ml Balance 1080 ml Intake Oral 1080 ml Current Medications: Meds: Current Medications Donepezil HCl (Aricept) 5 mg QHS PO Last administered on 11/13/16 20:08; Start 11/11/16 at 22:45; Stop 11/14/16 at 18:15; Status DC Olanzapine (ZyPREXA ZYDIS) 2.5 mg PRN Q2HR PRN PO PSYCHOSIS Last administered on 11/15/16 13:02; Start 11/11/16 at 22:30 Melatonin 3 mg PRN QHS PRN PO INSOMNIA Last administered on 11/14/16 20:22; Start 11/11/16 at 22:30 Hydralazine HCl (Apresoline) 25 mg BID PO Last administered on 11/15/16 08:17 ; Start 11/11/16 at 22:45 Lisinopril (Prinivil) 20 mg BID PO Last administered on 11/15/16 08:16; Start 11/11/16 at 22:45 Aspirin (Aspirin Enteric Coated) 81 mg DAILY PO Last administered on 11/15/16 08:16; Start 11/12/16 at 09:00 Carvedilol (Coreg) 6.25 mg BIDWMEALS PO Last administered on 11/15/16 15:52; Start 11/12/16 at 08:00 Vitamin D (Vitamin D3) 1,000 unit DAILY PO Last administered on 11/15/16 08:17 ; Start 11/12/16 at 09:00 Docusate Sodium (Colace) 100 mg PRN BID PRN PO CONSTIPATION; Start 11/12/16 at 07:30 Levothyroxine Sodium (Synthroid) 25 mcg DAILY07 PO Last administered on 05:45; Start 11/12/16 at 07:45; Stop 11/13/16 at 15:15; Status DC Polyethylene Glycol (miraLAX) 17 gm DAILY PO Last administered on 11/15/16 08: 17; Start 11/12/16 at 09:00 Tamsulosin HCl (Flomax) 0.4 mg DAILY PO Last administered on 11/15/16 08:19; Start 11/12/16 at 09:00 Non-Formulary Medication 2 puff BID IH ; Start 11/12/16 at 09:00; Stop 11/12/16 at 09:00; Status DC Pravastatin Sodium (Pravachol) 80 mg QHS PO Last administered on 11/14/16 20: 15; Start 11/12/16 at 21:00 Prednisone (Prednisone) 50 mg DAILY PO Last administered on 11/12/16 08:03; Start 11/12/16 at 09:00; Stop 11/12/16 at 16:59; Status DC Albuterol Sulfate (Ventolin) 2.5 mg RTQID NEB Last administered on 11/15/16 15 :38; Start 11/12/16 at 12:00 Budesonide (Pulmicort) 0.5 mg RTBID NEB Last administered on 11/15/16 09:48; Start 11/12/16 at 08:30 Pantoprazole Sodium (Protonix) 40 mg DAILYAC PO Last administered on 11/15/16 07:43; Start 11/13/16 at 07:30 Levothyroxine Sodium (Synthroid) 25 mcg DAILY06 PO Last administered on 05:13; Start 11/14/16 at 06:00 Sertraline HCl (Zoloft) 25 mg DAILY PO Last administered on 11/14/16 08:52; Start 11/14/16 at 09:00; Stop 11/14/16 at 18:15; Status DC Donepezil HCl (Aricept) 10 mg DAILY PO Last administered on 11/15/16 08:16; Start 11/14/16 at 09:00 Sertraline HCl (Zoloft) 50 mg DAILY PO Last administered on 11/15/16t 08:19; Start 11/15/16 at 09:00 Mirtazapine (Remeron) 7.5 mg QHS PO ; Start 11/15/16 at 21:00 Active Scripts Active Reported Flomax (Tamsulosin Hcl) 0.4 Mg Cap.er.24h 0.4 Mg PO DAILY Seroquel (Quetiapine Fumarate) 25 Mg Tablet 25 Mg PO DAILY Pravastatin Sodium 80 Mg Tablet 80 Mg PO DAILY Miralax (Polyethylene Glycol 3350) 119 Gm Powder 17 Gm PO DAILY Lisinopril 20 Mg Tablet 20 Mg PO BID Levothyroxine Sodium 25 Mcg Tablet 25 Mcg PO DAILY07 Hydralazine Hcl 25 Mg Tablet 25 Mg PO BID Donepezil Hcl 5 Mg Tablet 5 Mg PO QHS Colace (Docusate Sodium) 100 Mg Capsule 100 Mg PO PRN BID PRN Vitamin D3 (Cholecalciferol (Vitamin D3)) 1,000 Unit Tablet 1,000 Unit PO DAILY Carvedilol 6.25 Mg Tablet 6.25 Mg PO BIDWMEALS Symbicort 160-4.5 Mcg Inhaler (Budesonide/Formoterol Fumarate) 10.2 Gm Hfa.aer.ad 2 Puff IH BID Aspir-Low (Aspirin) 81 Mg Tablet. 81 Mg PO DAILY Prednisone 50 Mg Tablet 50 Mg PO DAILY 5 Days PATRIZIA HERBERT MD Nov 15, 2016 19:47
[2016-11-15] MEDS: PRAVASTATIN 20 MG TABLET. PO SCH (20:55)
[2016-11-15] MEDS: MELATONIN 3 MG TABLET PO PRN (20:58)
[2016-11-15] MEDS: MIRTAZAPINE 7.5 MG TABLET. PO SCH (20:58)
[2016-11-16] MEDS: LEVOTHYROXINE 25 MCG TABLET. PO SCH (05:16)
[2016-11-16] MEDS: ALBUTEROL SULFATE 2.5 MG/3 ML NEBU. NEB SCH ×4 (05:20→20:42)
[2016-11-16 05:49] VITALS: BP 159/72
--- NOTE | 2016-11-16 07:03 | PN ---
DATE: 11/14/2016 PSYCHIATRIC PROGRESS NOTE The late entry 11/14/2016, covers elements not covered in my initial note of 11/14/2016. SUBJECTIVE: I met with the patient evening of 11/14/2016 and met with his who was visiting him evening of 11/14/2016. The patient has been anxious, confused, irritable at times. Appetite is poor, withdrawn at other times. REVIEW OF SYSTEMS: No CV, , pulmonary, eye, ENT system symptoms on review. Reliability poor. MENTAL STATUS EXAM: Oriented to himself and situation. Insight, judgment, recent and remote memory, attention, concentration, fund of knowledge poor, consistent with his diagnosis. Mood and affect somewhat anxious, labile. LABORATORY DATA: Reviewed. IMPRESSION: Unchanged from initial note. PLAN: Increase Zoloft from 25 mg a day to 50 mg a day. Continue Aricept 10 mg a day along with melatonin and Zyprexa p.r.n. Adjust further as clinically indicated. MAN Kulwinder HERBERT MD DR: SONIA/marianna JOB#: [id number] / [id number]
[2016-11-16] MEDS: LISINOPRIL 20 MG TABLET PO SCH ×2 (07:57→20:10)
[2016-11-16] MEDS: DONEPEZIL HCL 10 MG TABLET PO SCH (07:57)
[2016-11-16] MEDS: CHOLECALCIFEROL (VITAMIN D3) 1,000 UNIT TABLET PO SCH (07:57)
[2016-11-16] MEDS: POLYETHYLENE GLYCOL 3350 17 GM PACKET. PO SCH (07:57)
[2016-11-16] MEDS: PANTOPRAZOLE 40 MG TABLET. PO SCH (07:58)
[2016-11-16] MEDS: ASPIRIN ENTERIC COATED 81 MG TABLET.DR. PO SCH (07:58)
[2016-11-16] MEDS: CARVEDILOL 6.25 MG TABLET PO SCH ×2 (07:58→17:00)
[2016-11-16] MEDS: hydrALAZINE 25 MG TABLET PO SCH ×2 (07:58→20:11)
[2016-11-16] MEDS: SERTRALINE 50 MG TABLET. PO SCH (07:58)
[2016-11-16] MEDS: TAMSULOSIN 0.4 MG CAP.ER.24H. PO SCH (07:59)
[2016-11-16] MEDS: BUDESONIDE 0.5 MG/2 ML NEBU NEB SCH ×2 (11:17→20:42)
--- NOTE | 2016-11-16 14:37 | RAD ---
CT of the head without contrast, 11/16/2016: History: Altered mental status There is moderate cerebral atrophy. The ventricles are mildly prominent on a compensatory basis. There is no shift of the midline structures. There is no evidence of acute intracranial hemorrhage or mass effect. There is calcific plaquing of the distal internal carotid and vertebral arteries. IMPRESSION: 1. Moderate cerebral atrophy. 2. No acute intracranial abnormality is detected. PQRS Compliance Statement: One or more of the following individualized dose reduction techniques were utilized for this examination: 1. Automated exposure control 2. Adjustment of the mA and/or kV according to patient size 3. Use of iterative reconstruction technique
[2016-11-16 16:01] VITALS: BP 137/67
--- NOTE | 2016-11-16 19:46 | PDOC ---
Exam Dev Demential Exam: Dev Note: Please also refer to the separate dictated note~for this date of service dictated separately.~Patient seen individually. Discussed the patient with Nursing staff reviewed the chart.~Reviewed interim history and current functioning. Reviewed vital signs,~Labs/ Radiology~and current medications noted below. Continue current treatment with the changes noted in the dictated addendum note Assessment: Vital Signs: Vital Signs Date Time Temp Pulse Resp B/P (MAP) Pulse Ox O2 Delivery O2 Flow Rate FiO2 11/16/16 17:00 60 137/67 11/16/16 16:27 97 Nasal Cannula 2.0 11/16/16 16:01 97.5 20 I&O Intake and Output 11/16/16 07:00 Intake Total 600 ml Balance 600 ml Intake Oral 600 ml # Voids 2 # Bowel Movements 1 Current Medications: Meds: Current Medications Donepezil HCl (Aricept) 5 mg QHS PO Last administered on 11/13/16 20:08; Start 11/11/16 at 22:45; Stop 11/14/16 at 18:15; Status DC Olanzapine (ZyPREXA ZYDIS) 2.5 mg PRN Q2HR PRN PO PSYCHOSIS Last administered on 11/15/16 13:02; Start 11/11/16 at 22:30 Melatonin 3 mg PRN QHS PRN PO INSOMNIA Last administered on 11/15/16 20:58; Start 11/11/16 at 22:30 Hydralazine HCl (Apresoline) 25 mg BID PO Last administered on 11/16/16 07:58 ; Start 11/11/16 at 22:45 Lisinopril (Prinivil) 20 mg BID PO Last administered on 11/16/16 07:57; Start 11/11/16 at 22:45 Aspirin (Aspirin Enteric Coated) 81 mg DAILY PO Last administered on 11/16/16 07:58; Start 11/12/16 at 09:00 Carvedilol (Coreg) 6.25 mg BIDWMEALS PO Last administered on 11/16/16 17:00; Start 11/12/16 at 08:00 Vitamin D (Vitamin D3) 1,000 unit DAILY PO Last administered on 11/16/16 07:57 ; Start 11/12/16 at 09:00 Docusate Sodium (Colace) 100 mg PRN BID PRN PO CONSTIPATION; Start 11/12/16 at 07:30 Levothyroxine Sodium (Synthroid) 25 mcg DAILY07 PO Last administered on 05:45; Start 11/12/16 at 07:45; Stop 11/13/16 at 15:15; Status DC Polyethylene Glycol (miraLAX) 17 gm DAILY PO Last administered on 11/16/16 07: 57; Start 11/12/16 at 09:00 Tamsulosin HCl (Flomax) 0.4 mg DAILY PO Last administered on 11/16/16 07:59; Start 11/12/16 at 09:00 Non-Formulary Medication 2 puff BID IH ; Start 11/12/16 at 09:00; Stop 11/12/16 at 09:00; Status DC Pravastatin Sodium (Pravachol) 80 mg QHS PO Last administered on 11/15/16 20: 55; Start 11/12/16 at 21:00 Prednisone (Prednisone) 50 mg DAILY PO Last administered on 11/12/16 08:03; Start 11/12/16 at 09:00; Stop 11/12/16 at 16:59; Status DC Albuterol Sulfate (Ventolin) 2.5 mg RTQID NEB Last administered on 11/16/16 16 :26; Start 11/12/16 at 12:00 Budesonide (Pulmicort) 0.5 mg RTBID NEB Last administered on 11/16/16 11:17; Start 11/12/16 at 08:30 Pantoprazole Sodium (Protonix) 40 mg DAILYAC PO Last administered on 11/16/16 07:58; Start 11/13/16 at 07:30 Levothyroxine Sodium (Synthroid) 25 mcg DAILY06 PO Last administered on 05:16; Start 11/14/16 at 06:00 Sertraline HCl (Zoloft) 25 mg DAILY PO Last administered on 11/14/16 08:52; Start 11/14/16 at 09:00; Stop 11/14/16 at 18:15; Status DC Donepezil HCl (Aricept) 10 mg DAILY PO Last administered on 11/16/16 07:57; Start 11/14/16 at 09:00 Sertraline HCl (Zoloft) 50 mg DAILY PO Last administered on 11/16/16 07:58; Start 11/15/16 at 09:00 Mirtazapine (Remeron) 7.5 mg QHS PO Last administered on 11/15/16 20:58; Start 11/15/16 at 21:00 Active Scripts Active Reported Flomax (Tamsulosin Hcl) 0.4 Mg Cap.er.24h 0.4 Mg PO DAILY Seroquel (Quetiapine Fumarate) 25 Mg Tablet 25 Mg PO DAILY Pravastatin Sodium 80 Mg Tablet 80 Mg PO DAILY Miralax (Polyethylene Glycol 3350) 119 Gm Powder 17 Gm PO DAILY Lisinopril 20 Mg Tablet 20 Mg PO BID Levothyroxine Sodium 25 Mcg Tablet 25 Mcg PO DAILY07 Hydralazine Hcl 25 Mg Tablet 25 Mg PO BID Donepezil Hcl 5 Mg Tablet 5 Mg PO QHS Colace (Docusate Sodium) 100 Mg Capsule 100 Mg PO PRN BID PRN Vitamin D3 (Cholecalciferol (Vitamin D3)) 1,000 Unit Tablet 1,000 Unit PO DAILY Carvedilol 6.25 Mg Tablet 6.25 Mg PO BIDWMEALS Symbicort 160-4.5 Mcg Inhaler (Budesonide/Formoterol Fumarate) 10.2 Gm Hfa.aer.ad 2 Puff IH BID Aspir-Low (Aspirin) 81 Mg Tablet. 81 Mg PO DAILY Prednisone 50 Mg Tablet 50 Mg PO DAILY 5 Days PATRIZIA HERBERT MD Nov 16, 2016 19:46
[2016-11-16] MEDS: MIRTAZAPINE 7.5 MG TABLET. PO SCH (20:10)
[2016-11-16] MEDS: PRAVASTATIN 20 MG TABLET. PO SCH (20:11)
--- NOTE | 2016-11-16 23:23 | PN ---
DATE: 11/15/2016 This late entry 11/15/2016 covers elements not covered in my initial note of 11/15/2016. SUBJECTIVE: I met with the patient the evening of 11/15/2016. The patient slept 1-1/4 hours previous evening. He is quite confused in the morning, refused shower, and breathing treatment in the morning. Agitated all day, believes he is in a car [place] looking for police. Swallow study will be done on Sunday per Dr. Mares since he has had some difficulty swallowing his medications whole. REVIEW OF SYSTEMS: Positive for the swallowing problems. No CV, , pulmonary, eye, ENT system symptoms on review. Reliability poor. MENTAL STATUS EXAM: Oriented to himself. Insight, judgment, very recent and remote memory, attention, concentration, fund of knowledge poor, consistent with his diagnosis. No active suicidal or homicidal ideations. Still remains somewhat anxious, irritable at times. LABORATORY DATA: Reviewed. IMPRESSION: Unchanged from initial note. PLAN: Start Remeron 7.5 mg p.o. at bedtime to help with the insomnia, anxiety, mood symptoms. Maintain rest unchanged. Reviewed drug interactions. Risk/benefit ratio favors no further change. PATRIZIA HERBERT MD DR: SONIA/marianna JOB#: [id number] / [id number]
[2016-11-16] MEDS: MELATONIN 3 MG TABLET PO PRN (23:26)
[2016-11-16] MEDS: ACETAMINOPHEN 325 MG TABLET PO PRN (23:26)
[2016-11-16] MEDS ORDERED: METHYL SALICYLATE/MENTHOL TOPICAL OINTMENT 29GM TUBE. TP PRN (23:30)
[2016-11-16] MEDS ORDERED: MAGNESIUM HYDROXIDE 2,400 MG/30 ML ORAL.SUSP. PO PRN (23:30)
[2016-11-16] MEDS ORDERED: MAG HYDROX/AL HYDROX/SIMETH 30 ML ORAL.SUSP PO PRN (23:30)
[2016-11-17] MEDS: LEVOTHYROXINE 25 MCG TABLET. PO SCH (05:06)
[2016-11-17] MEDS: ALBUTEROL SULFATE 2.5 MG/3 ML NEBU. NEB SCH ×4 (05:25→19:59)
[2016-11-17 06:02] VITALS: BP 175/76
[2016-11-17] MEDS: PANTOPRAZOLE 40 MG TABLET. PO SCH (07:25)
[2016-11-17] MEDS: TAMSULOSIN 0.4 MG CAP.ER.24H. PO SCH (07:25)
[2016-11-17] MEDS: POLYETHYLENE GLYCOL 3350 17 GM PACKET. PO SCH (07:25)
[2016-11-17] MEDS: SERTRALINE 50 MG TABLET. PO SCH (07:25)
[2016-11-17] MEDS: CHOLECALCIFEROL (VITAMIN D3) 1,000 UNIT TABLET PO SCH (07:25)
[2016-11-17] MEDS: ASPIRIN ENTERIC COATED 81 MG TABLET.DR. PO SCH (07:26)
[2016-11-17] MEDS: CARVEDILOL 6.25 MG TABLET PO SCH ×2 (07:26→17:00)
[2016-11-17] MEDS: hydrALAZINE 25 MG TABLET PO SCH (07:27)
[2016-11-17] MEDS: LISINOPRIL 20 MG TABLET PO SCH ×2 (07:27→20:51)
[2016-11-17] MEDS: DONEPEZIL HCL 10 MG TABLET PO SCH (07:27)
[2016-11-17] MEDS: BUDESONIDE 0.5 MG/2 ML NEBU NEB SCH ×2 (09:30→19:59)
[2016-11-17 16:31] VITALS: BP 100/53
--- NOTE | 2016-11-17 19:51 | PDOC ---
Exam Dev Demential Exam: Dev Note: Please also refer to the separate dictated note~for this date of service dictated separately.~Patient seen individually. Discussed the patient with Nursing staff reviewed the chart.~Reviewed interim history and current functioning. Reviewed vital signs,~Labs/ Radiology~and current medications noted below. Continue current treatment with the changes noted in the dictated addendum note Assessment: Vital Signs: Vital Signs Date Time Temp Pulse Resp B/P (MAP) Pulse Ox O2 Delivery O2 Flow Rate FiO2 11/17/16 17:00 55 100/53 11/17/16 16:31 97.7 16 96 11/17/16 15:25 Room Air 11/17/16 05:25 2.0 I&O Intake and Output 11/17/16 07:00 Intake Total 480 ml Balance 480 ml Intake Oral 480 ml Current Medications: Meds: Current Medications Donepezil HCl (Aricept) 5 mg QHS PO Last administered on 11/13/16 20:08; Start 11/11/16 at 22:45; Stop 11/14/16 at 18:15; Status DC Olanzapine (ZyPREXA ZYDIS) 2.5 mg PRN Q2HR PRN PO PSYCHOSIS Last administered on 11/16/16 23:57; Start 11/11/16 at 22:30 Melatonin 3 mg PRN QHS PRN PO INSOMNIA Last administered on 11/16/16 23:26; Start 11/11/16 at 22:30 Hydralazine HCl (Apresoline) 25 mg BID PO Last administered on 11/17/16 07:27 ; Start 11/11/16 at 22:45; Stop 11/17/16 at 16:22; Status DC Lisinopril (Prinivil) 20 mg BID PO Last administered on 11/17/16 07:27; Start 11/11/16 at 22:45 Aspirin (Aspirin Enteric Coated) 81 mg DAILY PO Last administered on 11/17/16 07:26; Start 11/12/16 at 09:00 Carvedilol (Coreg) 6.25 mg BIDWMEALS PO Last administered on 11/17/16 07:26; Start 11/12/16 at 08:00 Vitamin D (Vitamin D3) 1,000 unit DAILY PO Last administered on 11/17/16 07:25 ; Start 11/12/16 at 09:00 Docusate Sodium (Colace) 100 mg PRN BID PRN PO CONSTIPATION; Start 11/12/16 at 07:30 Levothyroxine Sodium (Synthroid) 25 mcg DAILY07 PO Last administered on 05:45; Start 11/12/16 at 07:45; Stop 11/13/16 at 15:15; Status DC Polyethylene Glycol (miraLAX) 17 gm DAILY PO Last administered on 11/17/16 07: 25; Start 11/12/16 at 09:00 Tamsulosin HCl (Flomax) 0.4 mg DAILY PO Last administered on 11/17/16 07:25; Start 11/12/16 at 09:00 Non-Formulary Medication 2 puff BID IH ; Start 11/12/16 at 09:00; Stop 11/12/16 at 09:00; Status DC Pravastatin Sodium (Pravachol) 80 mg QHS PO Last administered on 11/16/16 20: 11; Start 11/12/16 at 21:00 Prednisone (Prednisone) 50 mg DAILY PO Last administered on 11/12/16 08:03; Start 11/12/16 at 09:00; Stop 11/12/16 at 16:59; Status DC Albuterol Sulfate (Ventolin) 2.5 mg RTQID NEB Last administered on 11/17/16 15 :24; Start 11/12/16 at 12:00 Budesonide (Pulmicort) 0.5 mg RTBID NEB Last administered on 11/17/16 09:30; Start 11/12/16 at 08:30 Pantoprazole Sodium (Protonix) 40 mg DAILYAC PO Last administered on 11/17/16 07:25; Start 11/13/16 at 07:30 Levothyroxine Sodium (Synthroid) 25 mcg DAILY06 PO Last administered on 05:06; Start 11/14/16 at 06:00 Sertraline HCl (Zoloft) 25 mg DAILY PO Last administered on 11/14/16 08:52; Start 11/14/16 at 09:00; Stop 11/14/16 at 18:15; Status DC Donepezil HCl (Aricept) 10 mg DAILY PO Last administered on 11/17/16 07:27; Start 11/14/16 at 09:00 Sertraline HCl (Zoloft) 50 mg DAILY PO Last administered on 11/17/16 07:25; Start 11/15/16 at 09:00 Mirtazapine (Remeron) 7.5 mg QHS PO Last administered on 11/16/16 20:10; Start 11/15/16 at 21:00 Acetaminophen (Tylenol) 650 mg PRN Q6HRS PRN PO PAIN / TEMP Last administered on 11/16/16 23:26; Start 11/16/16 at 23:30 Magnesium Hydroxide (Milk Of Magnesia) 2,400 mg PRN DAILY PRN PO CONSTIPATION; Start 11/16/16 at 23:30 Al Hydroxide/Mg Hydroxide (Mylanta Plus Xs) 30 ml PRN AFTMEALHC PRN PO DYSPEPSIA; Start 11/16/16 at 23:30 Multi-Ingredient Ointment (Analgesic [place]) 1 kathryn PRN QID PRN TP MUSCLE PAIN; Start 11/16/16 at 23:30 Hydralazine HCl (Apresoline) 50 mg TID PO ; Start 11/17/16 at 21:00 Active Scripts Active Reported Flomax (Tamsulosin Hcl) 0.4 Mg Cap.er.24h 0.4 Mg PO DAILY Seroquel (Quetiapine Fumarate) 25 Mg Tablet 25 Mg PO DAILY Pravastatin Sodium 80 Mg Tablet 80 Mg PO DAILY Miralax (Polyethylene Glycol 3350) 119 Gm Powder 17 Gm PO DAILY Lisinopril 20 Mg Tablet 20 Mg PO BID Levothyroxine Sodium 25 Mcg Tablet 25 Mcg PO DAILY07 Hydralazine Hcl 25 Mg Tablet 25 Mg PO BID Donepezil Hcl 5 Mg Tablet 5 Mg PO QHS Colace (Docusate Sodium) 100 Mg Capsule 100 Mg PO PRN BID PRN Vitamin D3 (Cholecalciferol (Vitamin D3)) 1,000 Unit Tablet 1,000 Unit PO DAILY Carvedilol 6.25 Mg Tablet 6.25 Mg PO BIDWMEALS Symbicort 160-4.5 Mcg Inhaler (Budesonide/Formoterol Fumarate) 10.2 Gm Hfa.aer.ad 2 Puff IH BID Aspir-Low (Aspirin) 81 Mg Tablet. 81 Mg PO DAILY Prednisone 50 Mg Tablet 50 Mg PO DAILY 5 Days PATRIZIA HERBERT MD Nov 17, 2016 19:51
[2016-11-17] MEDS: MELATONIN 3 MG TABLET PO PRN (20:38)
[2016-11-17] MEDS: PRAVASTATIN 20 MG TABLET. PO SCH (20:38)
[2016-11-17] MEDS: MIRTAZAPINE 7.5 MG TABLET. PO SCH (20:40)
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
[2016-11-18] MEDS: LEVOTHYROXINE 25 MCG TABLET. PO SCH (05:02)
[2016-11-18] MEDS: ALBUTEROL SULFATE 2.5 MG/3 ML NEBU. NEB SCH ×4 (05:20→20:07)
[2016-11-18 06:03] VITALS: BP 150/67
[2016-11-18] MEDS: POLYETHYLENE GLYCOL 3350 17 GM PACKET. PO SCH (07:26)
[2016-11-18] MEDS: CHOLECALCIFEROL (VITAMIN D3) 1,000 UNIT TABLET PO SCH (07:27)
[2016-11-18] MEDS: SERTRALINE 50 MG TABLET. PO SCH (07:28)
[2016-11-18] MEDS: CARVEDILOL 6.25 MG TABLET PO SCH (07:28)
[2016-11-18] MEDS: PANTOPRAZOLE 40 MG TABLET. PO SCH (07:28)
[2016-11-18] MEDS: TAMSULOSIN 0.4 MG CAP.ER.24H. PO SCH (07:28)
[2016-11-18] MEDS: DONEPEZIL HCL 10 MG TABLET PO SCH (07:28)
[2016-11-18] MEDS: LISINOPRIL 20 MG TABLET PO SCH ×2 (07:28→20:03)
[2016-11-18] MEDS: ASPIRIN ENTERIC COATED 81 MG TABLET.DR. PO SCH (07:28)
--- NOTE | 2016-11-18 09:21 | RAD ---
Indication: Short of air and cough. Technique: Upright portable chest radiograph was obtained. No comparison is available. Findings: The lungs are hyperinflated but clear. Decreased vascular markings can be a finding of emphysema, has a basilar predominance. The heart is not enlarged and there is no heart failure. There is atheromatous disease in the thoracic aorta. There are degenerative changes in the spine. Impression: 1. No acute thoracic findings. 2. Hyperinflation with decreased lung markings may be secondary to emphysema.
[2016-11-18] MEDS: BUDESONIDE 0.5 MG/2 ML NEBU NEB SCH ×2 (10:46→20:07)
--- NOTE | 2016-11-18 12:22 | EKG ---
[address] [address] Test Date: 2016-11-17 Test Time: 16:38:14 Pat Name: CONNIE RAMIREZ Department: Room: [address] [place] [address] Gender: Stick Inserter: : 1930 Requested By: SANDRA AVILEZ Order Number: [id number] Reading MD: Jeevan Reeder Measurements Intervals [place] Rate: P: OR: QRS: QRSD: T: QT: QTc: Interpretive Statements SR NON-SPECIFIC ST/T CHANGES Electronically Signed On 11-27-2016 11:14:21 CDT by Jeevan Reeder
[2016-11-18] MEDS: ACETAMINOPHEN 325 MG TABLET PO PRN (12:41)
[2016-11-18 15:46] VITALS: BP 93/55
[2016-11-18] MEDS: MIRTAZAPINE 7.5 MG TABLET. PO SCH (20:01)
[2016-11-18] MEDS: PRAVASTATIN 20 MG TABLET. PO SCH (20:03)
[2016-11-18] MEDS: MELATONIN 3 MG TABLET PO PRN (20:03)
[2016-11-18 20:07] VITALS: BP 130/81
--- NOTE | 2016-11-18 23:16 | PDOC ---
Exam Dev Demential Exam: Dev Note: Please also refer to the separate dictated note~for this date of service dictated separately.~Patient seen individually. Discussed the patient with Nursing staff reviewed the chart.~Reviewed interim history and current functioning. Reviewed vital signs,~Labs/ Radiology~and current medications noted below. Continue current treatment with the changes noted in the dictated addendum note Assessment: Vital Signs: Vital Signs Date Time Temp Pulse Resp B/P (MAP) Pulse Ox O2 Delivery O2 Flow Rate FiO2 11/18/16 20:14 Nasal Cannula 2.0 11/18/16 20:10 96 11/18/16 20:07 51 130/81 (97) 11/18/16 15:46 98.9 19 I&O Intake and Output 11/18/16 07:00 Intake Total 580 ml Balance 580 ml Intake Oral 580 ml # Bowel Movements 1 Current Medications: Meds: Current Medications Donepezil HCl (Aricept) 5 mg QHS PO Last administered on 11/13/16 20:08; Start 11/11/16 at 22:45; Stop 11/14/16 at 18:15; Status DC Olanzapine (ZyPREXA ZYDIS) 2.5 mg PRN Q2HR PRN PO PSYCHOSIS Last administered on 11/17/16 20:50; Start 11/11/16 at 22:30 Melatonin 3 mg PRN QHS PRN PO INSOMNIA Last administered on 11/18/16 20:03; Start 11/11/16 at 22:30 Hydralazine HCl (Apresoline) 25 mg BID PO Last administered on 11/17/16 07:27 ; Start 11/11/16 at 22:45; Stop 11/17/16 at 16:22; Status DC Lisinopril (Prinivil) 20 mg BID PO Last administered on 11/18/16 20:03; Start 11/11/16 at 22:45 Aspirin (Aspirin Enteric Coated) 81 mg DAILY PO Last administered on 11/18/16 07:28; Start 11/12/16 at 09:00 Carvedilol (Coreg) 6.25 mg BIDWMEALS PO Last administered on 11/18/16 07:28; Start 11/12/16 at 08:00; Stop 11/18/16 at 12:17; Status DC Vitamin D (Vitamin D3) 1,000 unit DAILY PO Last administered on 11/18/16 07:27 ; Start 11/12/16 at 09:00 Docusate Sodium (Colace) 100 mg PRN BID PRN PO CONSTIPATION; Start 11/12/16 at 07:30 Levothyroxine Sodium (Synthroid) 25 mcg DAILY07 PO Last administered on 05:45; Start 11/12/16 at 07:45; Stop 11/13/16 at 15:15; Status DC Polyethylene Glycol (miraLAX) 17 gm DAILY PO Last administered on 11/18/16 07: 26; Start 11/12/16 at 09:00 Tamsulosin HCl (Flomax) 0.4 mg DAILY PO Last administered on 11/18/16 07:28; Start 11/12/16 at 09:00 Non-Formulary Medication 2 puff BID IH ; Start 11/12/16 at 09:00; Stop 11/12/16 at 09:00; Status DC Pravastatin Sodium (Pravachol) 80 mg QHS PO Last administered on 11/18/16 20: 03; Start 11/12/16 at 21:00 Prednisone (Prednisone) 50 mg DAILY PO Last administered on 11/12/16 08:03; Start 11/12/16 at 09:00; Stop 11/12/16 at 16:59; Status DC Albuterol Sulfate (Ventolin) 2.5 mg RTQID NEB Last administered on 11/18/16 20 :07; Start 11/12/16 at 12:00 Budesonide (Pulmicort) 0.5 mg RTBID NEB Last administered on 11/18/16 20:07; Start 11/12/16 at 08:30 Pantoprazole Sodium (Protonix) 40 mg DAILYAC PO Last administered on 11/18/16 07:28; Start 11/13/16 at 07:30 Levothyroxine Sodium (Synthroid) 25 mcg DAILY06 PO Last administered on 05:02; Start 11/14/16 at 06:00 Sertraline HCl (Zoloft) 25 mg DAILY PO Last administered on 11/14/16 08:52; Start 11/14/16 at 09:00; Stop 11/14/16 at 18:15; Status DC Donepezil HCl (Aricept) 10 mg DAILY PO Last administered on 11/18/16 07:28; Start 11/14/16 at 09:00 Sertraline HCl (Zoloft) 50 mg DAILY PO Last administered on 11/18/16 07:28; Start 11/15/16 at 09:00 Mirtazapine (Remeron) 7.5 mg QHS PO Last administered on 11/18/16 20:01; Start 11/15/16 at 21:00 Acetaminophen (Tylenol) 650 mg PRN Q6HRS PRN PO PAIN / TEMP Last administered on 11/18/16 12:41; Start 11/16/16 at 23:30 Magnesium Hydroxide (Milk Of Magnesia) 2,400 mg PRN DAILY PRN PO CONSTIPATION; Start 11/16/16 at 23:30 Al Hydroxide/Mg Hydroxide (Mylanta Plus Xs) 30 ml PRN AFTMEALHC PRN PO DYSPEPSIA; Start 11/16/16 at 23:30 Multi-Ingredient Ointment (Analgesic [place]) 1 kathryn PRN QID PRN TP MUSCLE PAIN; Start 11/16/16 at 23:30 Hydralazine HCl (Apresoline) 50 mg TID PO Last administered on 11/18/16 07:27 ; Start 11/17/16 at 21:00; Stop 11/18/16 at 12:16; Status DC Hydralazine HCl (Apresoline) 25 mg TID PO Last administered on 11/18/16 20:03 ; Start 11/18/16 at 14:00 Active Scripts Active Reported Flomax (Tamsulosin Hcl) 0.4 Mg Cap.er.24h 0.4 Mg PO DAILY Seroquel (Quetiapine Fumarate) 25 Mg Tablet 25 Mg PO DAILY Pravastatin Sodium 80 Mg Tablet 80 Mg PO DAILY Miralax (Polyethylene Glycol 3350) 119 Gm Powder 17 Gm PO DAILY Lisinopril 20 Mg Tablet 20 Mg PO BID Levothyroxine Sodium 25 Mcg Tablet 25 Mcg PO DAILY07 Hydralazine Hcl 25 Mg Tablet 25 Mg PO BID Donepezil Hcl 5 Mg Tablet 5 Mg PO QHS Colace (Docusate Sodium) 100 Mg Capsule 100 Mg PO PRN BID PRN Vitamin D3 (Cholecalciferol (Vitamin D3)) 1,000 Unit Tablet 1,000 Unit PO DAILY Carvedilol 6.25 Mg Tablet 6.25 Mg PO BIDWMEALS Symbicort 160-4.5 Mcg Inhaler (Budesonide/Formoterol Fumarate) 10.2 Gm Hfa.aer.ad 2 Puff IH BID Aspir-Low (Aspirin) 81 Mg Tablet. 81 Mg PO DAILY Prednisone 50 Mg Tablet 50 Mg PO DAILY 5 Days PATRIZIA HERBERT MD Nov 18, 2016 23:16
--- NOTE | 2016-11-19 02:50 | PN ---
DATE: 11/17/2016 This late entry 11/17/2016 covers elements not covered in my initial note. SUBJECTIVE: I met with the patient in evening of 11/17/2016 for this assessment. The patient slept just 4-1/4 hours previous evening because he was kept up by his roommate. Since then his roommate has been changed to a different roommate who does sleep at night, which should help. As a consequence of not sleeping well the previous evening, he has been frustrated during the day on 11/17/2016, a little more confused as well, voiced vague suicidal ideation to the nursing staff, "I might as well be ." When further questioned, denied suicidal ideation, just expressed frustration. EKG shows heart rate in the 50s, pulse was 48, O2 sats unremarkable, has some shortness of breath. Chest x-ray has been done per Dr. Mares. I will defer medical management to Dr. Mares. REVIEW OF SYSTEMS: Positive for some tiredness. No CV, , pulmonary, eye system symptoms on review. MENTAL STATUS EXAM: Oriented to himself and situation. Speech has some latency, coherent. Abstraction fair, computation impaired. Language function intact. Attention span short. We talked about his spouse and how she has been very helpful to him. He is very appreciative of the fact that she is much younger than him, is able to help much better than if he had a spouse his own age and was quite coherent in all of this. No active suicidal or homicidal ideation. Short term memory is impaired. LABORATORY DATA: Reviewed. IMPRESSION: Unchanged from initial note. PLAN: Continue current psychotropics, adjust further as clinically indicated. Psychotropics mentioned in my initial note. MAN Kulwinder HERBERT MD DR: SONIA/marianna JOB#: [id number] / [id number]
[2016-11-19] MEDS: ALBUTEROL SULFATE 2.5 MG/3 ML NEBU. NEB SCH ×4 (05:10→20:05)
[2016-11-19 05:38] VITALS: BP 127/55
[2016-11-19] MEDS: LEVOTHYROXINE 25 MCG TABLET. PO SCH (05:51)
[2016-11-19] MEDS: ASPIRIN ENTERIC COATED 81 MG TABLET.DR. PO SCH (07:22)
[2016-11-19] MEDS: PANTOPRAZOLE 40 MG TABLET. PO SCH (07:22)
[2016-11-19] MEDS: POLYETHYLENE GLYCOL 3350 17 GM PACKET. PO SCH (07:22)
[2016-11-19] MEDS: CHOLECALCIFEROL (VITAMIN D3) 1,000 UNIT TABLET PO SCH (07:22)
[2016-11-19] MEDS: TAMSULOSIN 0.4 MG CAP.ER.24H. PO SCH (07:22)
[2016-11-19] MEDS: SERTRALINE 50 MG TABLET. PO SCH (07:22)
[2016-11-19] MEDS: DONEPEZIL HCL 10 MG TABLET PO SCH (07:23)
[2016-11-19] MEDS: LISINOPRIL 20 MG TABLET PO SCH ×2 (07:24→20:52)
[2016-11-19] MEDS: BUDESONIDE 0.5 MG/2 ML NEBU NEB SCH ×2 (10:43→20:05)
[2016-11-19] MEDS: ACETAMINOPHEN 325 MG TABLET PO PRN (14:45)
[2016-11-19 16:13] VITALS: BP 99/51
--- NOTE | 2016-11-19 19:46 | PDOC ---
Exam Dev Demential Exam: Dev Note: Please also refer to the separate dictated note~for this date of service dictated separately.~Patient seen individually. Discussed the patient with Nursing staff reviewed the chart.~Reviewed interim history and current functioning. Reviewed vital signs,~Labs/ Radiology~and current medications noted below. Continue current treatment with the changes noted in the dictated addendum note Assessment: Vital Signs: Vital Signs Date Time Temp Pulse Resp B/P (MAP) Pulse Ox O2 Delivery O2 Flow Rate FiO2 11/19/16 16:13 97.8 54 18 99/51 (67) 96 Room Air 2.0 I&O Intake and Output 11/19/16 07:00 Intake Total 750 ml Balance 750 ml Intake Oral 750 ml Current Medications: Meds: Current Medications Donepezil HCl (Aricept) 5 mg QHS PO Last administered on 11/13/16 20:08; Start 11/11/16 at 22:45; Stop 11/14/16 at 18:15; Status DC Olanzapine (ZyPREXA ZYDIS) 2.5 mg PRN Q2HR PRN PO PSYCHOSIS Last administered on 11/19/16 13:16; Start 11/11/16 at 22:30 Melatonin 3 mg PRN QHS PRN PO INSOMNIA Last administered on 11/18/16 20:03; Start 11/11/16 at 22:30 Hydralazine HCl (Apresoline) 25 mg BID PO Last administered on 11/17/16 07:27 ; Start 11/11/16 at 22:45; Stop 11/17/16 at 16:22; Status DC Lisinopril (Prinivil) 20 mg BID PO Last administered on 11/18/16 20:03; Start 11/11/16 at 22:45 Aspirin (Aspirin Enteric Coated) 81 mg DAILY PO Last administered on 11/19/16 07:22; Start 11/12/16 at 09:00 Carvedilol (Coreg) 6.25 mg BIDWMEALS PO Last administered on 11/18/16 07:28; Start 11/12/16 at 08:00; Stop 11/18/16 at 12:17; Status DC Vitamin D (Vitamin D3) 1,000 unit DAILY PO Last administered on 11/19/16 07:22 ; Start 11/12/16 at 09:00 Docusate Sodium (Colace) 100 mg PRN BID PRN PO CONSTIPATION; Start 11/12/16 at 07:30 Levothyroxine Sodium (Synthroid) 25 mcg DAILY07 PO Last administered on 05:45; Start 11/12/16 at 07:45; Stop 11/13/16 at 15:15; Status DC Polyethylene Glycol (miraLAX) 17 gm DAILY PO Last administered on 11/19/16 07: 22; Start 11/12/16 at 09:00 Tamsulosin HCl (Flomax) 0.4 mg DAILY PO Last administered on 11/19/16 07:22; Start 11/12/16 at 09:00 Non-Formulary Medication 2 puff BID IH ; Start 11/12/16 at 09:00; Stop 11/12/16 at 09:00; Status DC Pravastatin Sodium (Pravachol) 80 mg QHS PO Last administered on 11/18/16 20: 03; Start 11/12/16 at 21:00 Prednisone (Prednisone) 50 mg DAILY PO Last administered on 11/12/16 08:03; Start 11/12/16 at 09:00; Stop 11/12/16 at 16:59; Status DC Albuterol Sulfate (Ventolin) 2.5 mg RTQID NEB Last administered on 11/19/16 15 :52; Start 11/12/16 at 12:00 Budesonide (Pulmicort) 0.5 mg RTBID NEB Last administered on 11/19/16 10:43; Start 11/12/16 at 08:30 Pantoprazole Sodium (Protonix) 40 mg DAILYAC PO Last administered on 11/19/16 07:22; Start 11/13/16 at 07:30 Levothyroxine Sodium (Synthroid) 25 mcg DAILY06 PO Last administered on 05:51; Start 11/14/16 at 06:00 Sertraline HCl (Zoloft) 25 mg DAILY PO Last administered on 11/14/16 08:52; Start 11/14/16 at 09:00; Stop 11/14/16 at 18:15; Status DC Donepezil HCl (Aricept) 10 mg DAILY PO Last administered on 11/19/16 07:23; Start 11/14/16 at 09:00 Sertraline HCl (Zoloft) 50 mg DAILY PO Last administered on 11/19/16 07:22; Start 11/15/16 at 09:00 Mirtazapine (Remeron) 7.5 mg QHS PO Last administered on 11/18/16 20:01; Start 11/15/16 at 21:00 Acetaminophen (Tylenol) 650 mg PRN Q6HRS PRN PO PAIN / TEMP Last administered on 11/19/16 14:45; Start 11/16/16 at 23:30 Magnesium Hydroxide (Milk Of Magnesia) 2,400 mg PRN DAILY PRN PO CONSTIPATION; Start 11/16/16 at 23:30 Al Hydroxide/Mg Hydroxide (Mylanta Plus Xs) 30 ml PRN AFTMEALHC PRN PO DYSPEPSIA; Start 11/16/16 at 23:30 Multi-Ingredient Ointment (Analgesic [place]) 1 kathryn PRN QID PRN TP MUSCLE PAIN; Start 11/16/16 at 23:30 Hydralazine HCl (Apresoline) 50 mg TID PO Last administered on 11/18/16 07:27 ; Start 11/17/16 at 21:00; Stop 11/18/16 at 12:16; Status DC Hydralazine HCl (Apresoline) 25 mg TID PO Last administered on 11/18/16 20:03 ; Start 11/18/16 at 14:00 Active Scripts Active Reported Flomax (Tamsulosin Hcl) 0.4 Mg Cap.er.24h 0.4 Mg PO DAILY Seroquel (Quetiapine Fumarate) 25 Mg Tablet 25 Mg PO DAILY Pravastatin Sodium 80 Mg Tablet 80 Mg PO DAILY Miralax (Polyethylene Glycol 3350) 119 Gm Powder 17 Gm PO DAILY Lisinopril 20 Mg Tablet 20 Mg PO BID Levothyroxine Sodium 25 Mcg Tablet 25 Mcg PO DAILY07 Hydralazine Hcl 25 Mg Tablet 25 Mg PO BID Donepezil Hcl 5 Mg Tablet 5 Mg PO QHS Colace (Docusate Sodium) 100 Mg Capsule 100 Mg PO PRN BID PRN Vitamin D3 (Cholecalciferol (Vitamin D3)) 1,000 Unit Tablet 1,000 Unit PO DAILY Carvedilol 6.25 Mg Tablet 6.25 Mg PO BIDWMEALS Symbicort 160-4.5 Mcg Inhaler (Budesonide/Formoterol Fumarate) 10.2 Gm Hfa.aer.ad 2 Puff IH BID Aspir-Low (Aspirin) 81 Mg Tablet. 81 Mg PO DAILY Prednisone 50 Mg Tablet 50 Mg PO DAILY 5 Days PATRIZIA HERBERT MD Nov 19, 2016 19:46
[2016-11-19] MEDS: MIRTAZAPINE 7.5 MG TABLET. PO SCH (20:50)
[2016-11-19] MEDS: PRAVASTATIN 20 MG TABLET. PO SCH (20:51)
--- NOTE | 2016-11-19 23:34 | PN ---
DATE: 11/18/2016 PSYCHIATRIC PROGRESS NOTE This is a late entry for 11/18/2016, covers elements not covered in my initial note. SUBJECTIVE: I met with the patient evening of 11/18/2016. The patient was irritable previous evening, received Zyprexa, has done reasonably well during the day on 11/18/2016, and remains confused. We discussed his assistance from his and he is very appreciative of everything she does for him. REVIEW OF SYSTEMS: He ambulates with assistance. Gait unsteady. No CV, , pulmonary, eye, ENT system symptoms on review. Reliability poor. MENTAL STATUS EXAM: Oriented to himself and situation. Speech is coherent, abstraction fair, computation impaired, language function intact, attention span short. Mood and affect at times more irritable mostly in the evening and the rest of the day he is doing better. No active suicidal or homicidal ideation. Intellect average, insight good, judgment intact. IMPRESSION: Unchanged from initial note. PLAN: Continue current psychotropics. Reviewed drug interactions. Risk/benefit ratio favors no further change as of now. MAN Kulwinder HERBERT MD DR: SONIA/marianna JOB#: [id number] / [id number]
[2016-11-20] MEDS: LEVOTHYROXINE 25 MCG TABLET. PO SCH (04:59)
[2016-11-20] MEDS: ALBUTEROL SULFATE 2.5 MG/3 ML NEBU. NEB SCH ×4 (05:00→20:27)
[2016-11-20 06:12] VITALS: BP 122/58
[2016-11-20] MEDS: PANTOPRAZOLE 40 MG TABLET. PO SCH (07:38)
[2016-11-20] MEDS: POLYETHYLENE GLYCOL 3350 17 GM PACKET. PO SCH (09:14)
[2016-11-20] MEDS: CHOLECALCIFEROL (VITAMIN D3) 1,000 UNIT TABLET PO SCH (09:14)
[2016-11-20] MEDS: DONEPEZIL HCL 10 MG TABLET PO SCH (09:14)
[2016-11-20] MEDS: ASPIRIN ENTERIC COATED 81 MG TABLET.DR. PO SCH (09:17)
[2016-11-20] MEDS: TAMSULOSIN 0.4 MG CAP.ER.24H. PO SCH (09:17)
[2016-11-20] MEDS: SERTRALINE 50 MG TABLET. PO SCH (09:18)
[2016-11-20] MEDS: LISINOPRIL 20 MG TABLET PO SCH ×2 (09:18→20:01)
[2016-11-20] MEDS: BUDESONIDE 0.5 MG/2 ML NEBU NEB SCH ×2 (10:20→20:27)
[2016-11-20 16:01] VITALS: BP 116/72
[2016-11-20 16:34] LABS: ALBUMIN 3.7 g/dL (3.4-5.0); ALBUMIN/GLOBULIN RATIO 1.5 (1.0-1.7); BASO % 0 % (0-3); CALCIUM 8.5 mg/dL (8.5-10.1); CREATININE 1.5 mg/dL (0.7-1.3); EOS # 0.2 x10^3/uL (0.0-0.7); EOS % 2 % (0-3); GFR 44.2; HEMATOCRIT 47.9 % (39.0-53.0); HEMOGLOBIN 16.1 g/dL (13.0-17.5); LYMPH # 1.3 x10^3/uL (1.0-4.8); LYMPH % 12 % (24-48); MEAN CORPUSCULAR HEMOGLOBIN 31 pg (25-35); MEAN CORPUSCULAR HGB CONC 34 g/dL (31-37); MEAN CORPUSCULAR VOLUME 91 fL (79-100); MONO # 1.6 x10^3/uL (0.0-1.1); MONO % 15 % (0-9); NEUT # 7.4 x10^3uL (1.8-7.7); NEUT % 71 % (31-73); PLATELET COUNT 243 x10^3/uL (140-400); POTASSIUM 4.2 mmol/L (3.5-5.1); RED BLOOD COUNT 5.29 x10^6/uL (4.30-5.70); RED CELL DISTRIBUTION WIDTH 14.8 % (11.5-14.5); TOTAL BILIRUBIN 0.6 mg/dL (0.2-1.0); TOTAL PROTEIN 6.2 g/dL (6.4-8.2); WHITE BLOOD COUNT 10.5 x10^3/uL (4.0-11.0)
[2016-11-20] MEDS ORDERED: traZODone 50 MG TABLET. PO PRN (16:45)
[2016-11-20] MEDS: MAGNESIUM OXIDE 400 MG TABLET PO SCH (17:46)
--- NOTE | 2016-11-20 19:45 | PDOC ---
Exam Dev Demential Exam: Dev Note: Please also refer to the separate dictated note~for this date of service dictated separately.~Patient seen individually. Discussed the patient with Nursing staff reviewed the chart.~Reviewed interim history and current functioning. Reviewed vital signs,~Labs/ Radiology~and current medications noted below. Continue current treatment with the changes noted in the dictated addendum note Assessment: Vital Signs: Vital Signs Date Time Temp Pulse Resp B/P (MAP) Pulse Ox O2 Delivery O2 Flow Rate FiO2 11/20/16 16:08 96 Room Air 11/20/16 16:01 98.0 67 18 116/72 (87) 11/19/16 16:13 2.0 I&O Intake and Output 11/20/16 06:59 Intake Total 720 ml Balance 720 ml Intake Oral 720 ml Labs: Laboratory Tests Test 11/20/16 16:10 White Blood Count 10.5 x10^3/uL (4.0-11.0) Red Blood Count 5.29 x10^6/uL (4.30-5.70) Hemoglobin 16.1 g/dL (13.0-17.5) Hematocrit 47.9 % (39.0-53.0) Mean Corpuscular Volume 91 fL (79-100) Mean Corpuscular Hemoglobin 31 pg (25-35) Mean Corpuscular Hemoglobin Concent 34 g/dL (31-37) Red Cell Distribution Width 14.8 % (11.5-14.5) H Platelet Count 243 x10^3/uL (140-400) Neutrophils (%) (Auto) 71 % (31-73) Lymphocytes (%) (Auto) 12 % (24-48) L Monocytes (%) (Auto) 15 % (0-9) H Eosinophils (%) (Auto) 2 % (0-3) Basophils (%) (Auto) 0 % (0-3) Neutrophils # (Auto) 7.4 x10^3uL (1.8-7.7) Lymphocytes # (Auto) 1.3 x10^3/uL (1.0-4.8) Monocytes # (Auto) 1.6 x10^3/uL (0.0-1.1) H Eosinophils # (Auto) 0.2 x10^3/uL (0.0-0.7) Basophils # (Auto) 0.0 x10^3/uL (0.0-0.2) Sodium Level 137 mmol/L (136-145) Potassium Level 4.2 mmol/L (3.5-5.1) Chloride Level 101 mmol/L (98-107) Carbon Dioxide Level 30 mmol/L (21-32) Anion Gap 6 (6-14) Blood Urea Nitrogen 30 mg/dL (8-26) H Creatinine 1.5 mg/dL (0.7-1.3) H Estimated GFR (Cockcroft-Gault) 44.2 BUN/Creatinine Ratio 20 (6-20) Glucose Level 92 mg/dL (70-99) Calcium Level 8.5 mg/dL (8.5-10.1) Magnesium Level 2.3 mg/dL (1.8-2.4) Total Bilirubin 0.6 mg/dL (0.2-1.0) Aspartate Amino Transferase (AST) 30 U/L (15-37) Alanine Aminotransferase (ALT) 30 U/L (16-63) Alkaline Phosphatase 100 U/L (46-116) Total Protein 6.2 g/dL (6.4-8.2) L Albumin 3.7 g/dL (3.4-5.0) Albumin/Globulin Ratio 1.5 (1.0-1.7) Current Medications: Meds: Current Medications Donepezil HCl (Aricept) 5 mg QHS PO Last administered on 11/13/16 20:08; Start 11/11/16 at 22:45; Stop 11/14/16 at 18:15; Status DC Olanzapine (ZyPREXA ZYDIS) 2.5 mg PRN Q2HR PRN PO PSYCHOSIS Last administered on 11/19/16 13:16; Start 11/11/16 at 22:30 Melatonin 3 mg PRN QHS PRN PO INSOMNIA Last administered on 11/18/16 20:03; Start 11/11/16 at 22:30 Hydralazine HCl (Apresoline) 25 mg BID PO Last administered on 11/17/16 07:27 ; Start 11/11/16 at 22:45; Stop 11/17/16 at 16:22; Status DC Lisinopril (Prinivil) 20 mg BID PO Last administered on 11/20/16 09:18; Start 11/11/16 at 22:45 Aspirin (Aspirin Enteric Coated) 81 mg DAILY PO Last administered on 11/20/16 09:17; Start 11/12/16 at 09:00 Carvedilol (Coreg) 6.25 mg BIDWMEALS PO Last administered on 11/18/16 07:28; Start 11/12/16 at 08:00; Stop 11/18/16 at 12:17; Status DC Vitamin D (Vitamin D3) 1,000 unit DAILY PO Last administered on 11/20/16 09:14 ; Start 11/12/16 at 09:00 Docusate Sodium (Colace) 100 mg PRN BID PRN PO CONSTIPATION; Start 11/12/16 at 07:30 Levothyroxine Sodium (Synthroid) 25 mcg DAILY07 PO Last administered on 05:45; Start 11/12/16 at 07:45; Stop 11/13/16 at 15:15; Status DC Polyethylene Glycol (miraLAX) 17 gm DAILY PO Last administered on 11/20/16 09: 14; Start 11/12/16 at 09:00 Tamsulosin HCl (Flomax) 0.4 mg DAILY PO Last administered on 11/20/16 09:17; Start 11/12/16 at 09:00 Non-Formulary Medication 2 puff BID IH ; Start 11/12/16 at 09:00; Stop 11/12/16 at 09:00; Status DC Pravastatin Sodium (Pravachol) 80 mg QHS PO Last administered on 11/19/16 20: 51; Start 11/12/16 at 21:00 Prednisone (Prednisone) 50 mg DAILY PO Last administered on 11/12/16 08:03; Start 11/12/16 at 09:00; Stop 11/12/16 at 16:59; Status DC Albuterol Sulfate (Ventolin) 2.5 mg RTQID NEB Last administered on 11/20/16 16 :08; Start 11/12/16 at 12:00 Budesonide (Pulmicort) 0.5 mg RTBID NEB Last administered on 11/20/16 10:20; Start 11/12/16 at 08:30 Pantoprazole Sodium (Protonix) 40 mg DAILYAC PO Last administered on 11/20/16 07:38; Start 11/13/16 at 07:30 Levothyroxine Sodium (Synthroid) 25 mcg DAILY06 PO Last administered on 04:59; Start 11/14/16 at 06:00 Sertraline HCl (Zoloft) 25 mg DAILY PO Last administered on 11/14/16 08:52; Start 11/14/16 at 09:00; Stop 11/14/16 at 18:15; Status DC Donepezil HCl (Aricept) 10 mg DAILY PO Last administered on 11/20/16 09:14; Start 11/14/16 at 09:00 Sertraline HCl (Zoloft) 50 mg DAILY PO Last administered on 11/20/16 09:18; Start 11/15/16 at 09:00 Mirtazapine (Remeron) 7.5 mg QHS PO Last administered on 11/19/16 20:50; Start 11/15/16 at 21:00 Acetaminophen (Tylenol) 650 mg PRN Q6HRS PRN PO PAIN / TEMP Last administered on 11/19/16 14:45; Start 11/16/16 at 23:30 Magnesium Hydroxide (Milk Of Magnesia) 2,400 mg PRN DAILY PRN PO CONSTIPATION; Start 11/16/16 at 23:30 Al Hydroxide/Mg Hydroxide (Mylanta Plus Xs) 30 ml PRN AFTMEALHC PRN PO DYSPEPSIA; Start 11/16/16 at 23:30 Multi-Ingredient Ointment (Analgesic [place]) 1 kathryn PRN QID PRN TP MUSCLE PAIN Last administered on 11/20/16 15:01; Start 11/16/16 at 23:30 Hydralazine HCl (Apresoline) 50 mg TID PO Last administered on 11/18/16 07:27 ; Start 11/17/16 at 21:00; Stop 11/18/16 at 12:16; Status DC Hydralazine HCl (Apresoline) 25 mg TID PO Last administered on 11/20/16 09:16 ; Start 11/18/16 at 14:00 Magnesium Oxide (Magnesium Oxide) 400 mg DAILY PO Last administered on 17:46; Start 11/20/16 at 17:00 Trazodone HCl (Desyrel) 50 mg QHS PO ; Start 11/20/16 at 21:00 Trazodone HCl (Desyrel) 50 mg PRN QHS PRN PO INSOMNIA; Start 11/20/16 at 16:45 Active Scripts Active Reported Flomax (Tamsulosin Hcl) 0.4 Mg Cap.er.24h 0.4 Mg PO DAILY Seroquel (Quetiapine Fumarate) 25 Mg Tablet 25 Mg PO DAILY Pravastatin Sodium 80 Mg Tablet 80 Mg PO DAILY Miralax (Polyethylene Glycol 3350) 119 Gm Powder 17 Gm PO DAILY Lisinopril 20 Mg Tablet 20 Mg PO BID Levothyroxine Sodium 25 Mcg Tablet 25 Mcg PO DAILY07 Hydralazine Hcl 25 Mg Tablet 25 Mg PO BID Donepezil Hcl 5 Mg Tablet 5 Mg PO QHS Colace (Docusate Sodium) 100 Mg Capsule 100 Mg PO PRN BID PRN Vitamin D3 (Cholecalciferol (Vitamin D3)) 1,000 Unit Tablet 1,000 Unit PO DAILY Carvedilol 6.25 Mg Tablet 6.25 Mg PO BIDWMEALS Symbicort 160-4.5 Mcg Inhaler (Budesonide/Formoterol Fumarate) 10.2 Gm Hfa.aer.ad 2 Puff IH BID Aspir-Low (Aspirin) 81 Mg Tablet. 81 Mg PO DAILY Prednisone 50 Mg Tablet 50 Mg PO DAILY 5 Days PATRIZIA HERBERT MD Nov 20, 2016 19:45
[2016-11-20] MEDS: PRAVASTATIN 20 MG TABLET. PO SCH (20:00)
[2016-11-20] MEDS: MIRTAZAPINE 7.5 MG TABLET. PO SCH (20:01)
[2016-11-20] MEDS ORDERED: traZODone 50 MG TABLET. PO SCH (21:00)
--- NOTE | 2016-11-21 00:01 | PN ---
DATE: 11/19/2016 SUBJECTIVE: This is a late entry 11/19/2016, covers elements not covered in my initial note. I met with the patient evening of 11/19/2016. The patient did not sleep well the previous evening and was more agitated and confused during the day on 11/19/2016. Received Zyprexa in the afternoon for his agitation and psychosis. Repeatedly asking to wanting to go home, oblivious partly to why he was here and about discharge plan, which I addressed with him. REVIEW OF SYSTEMS: No CV, , pulmonary, or eye system symptoms on review. MENTAL STATUS EXAM: Oriented to himself and situation. Speech is coherent. He has some latency. Abstraction fair, computation impaired, language function intact, attention span short, and mood and affect somewhat anxious. LABORATORY DATA: Reviewed. IMPRESSION: Unchanged from initial note. PLAN: Continue current psychotropics. We will see how he sleeps the night of 11/19/2016, but if it is again disturbed, we will add trazodone on 11/20/2016. MAN Kulwinder HERBERT MD DR: SONIA/marianna JOB#: [id number] / [id number]
[2016-11-21] MEDS: LEVOTHYROXINE 25 MCG TABLET. PO SCH (03:39)
[2016-11-21 05:49] VITALS: BP 144/70
[2016-11-21] MEDS: ALBUTEROL SULFATE 2.5 MG/3 ML NEBU. NEB SCH ×2 (05:58→10:31)
[2016-11-21] MEDS: PANTOPRAZOLE 40 MG TABLET. PO SCH (07:32)
[2016-11-21] MEDS: TAMSULOSIN 0.4 MG CAP.ER.24H. PO SCH (08:14)
[2016-11-21] MEDS: DONEPEZIL HCL 10 MG TABLET PO SCH (08:14)
[2016-11-21] MEDS: ASPIRIN ENTERIC COATED 81 MG TABLET.DR. PO SCH (08:14)
[2016-11-21] MEDS: SERTRALINE 50 MG TABLET. PO SCH (08:14)
[2016-11-21] MEDS: CHOLECALCIFEROL (VITAMIN D3) 1,000 UNIT TABLET PO SCH (08:14)
[2016-11-21] MEDS: LISINOPRIL 20 MG TABLET PO SCH ×2 (08:15→19:31)
[2016-11-21] MEDS: MAGNESIUM OXIDE 400 MG TABLET PO SCH (08:15)
[2016-11-21] MEDS: POLYETHYLENE GLYCOL 3350 17 GM PACKET. PO SCH (08:17)
[2016-11-21] MEDS: BUDESONIDE 0.5 MG/2 ML NEBU NEB SCH ×2 (10:31→20:39)
[2016-11-21] MEDS ORDERED: guaiFENesin DM 600/30MG 1 TAB TAB.ER.12H PO SCH (12:45)
[2016-11-21] MEDS: guaiFENesin DM 200MG/20MG 10 ML SYRUP PO SCH ×2 (13:38→21:00)
[2016-11-21 14:06] VITALS: BP 106/57
[2016-11-21] MEDS: IPRATRPIUM/ALBUTEROL 0.5/2.5MG 3 ML NEBU. NEB SCH ×2 (15:54→20:40)
--- NOTE | 2016-11-21 18:42 | PDOC ---
Exam Dev Demential Exam: Dev Note: Please also refer to the separate dictated note~for this date of service dictated separately.~Patient seen individually. Discussed the patient with Nursing staff reviewed the chart.~Reviewed interim history and current functioning. Reviewed vital signs,~Labs/ Radiology~and current medications noted below. Continue current treatment with the changes noted in the dictated addendum note Assessment: Vital Signs: Vital Signs Date Time Temp Pulse Resp B/P (MAP) Pulse Ox O2 Delivery O2 Flow Rate FiO2 11/21/16 15:54 94 Nasal Cannula 2.0 11/21/16 15:31 97.8 11/21/16 14:06 64 106/57 (73) 11/21/16 05:49 18 I&O Intake and Output 11/21/16 07:00 Intake Total 720 ml Balance 720 ml Intake Oral 720 ml Current Medications: Meds: Current Medications Donepezil HCl (Aricept) 5 mg QHS PO Last administered on 11/13/16 20:08; Start 11/11/16 at 22:45; Stop 11/14/16 at 18:15; Status DC Olanzapine (ZyPREXA ZYDIS) 2.5 mg PRN Q2HR PRN PO PSYCHOSIS Last administered on 11/21/16 09:43; Start 11/11/16 at 22:30 Melatonin 3 mg PRN QHS PRN PO INSOMNIA Last administered on 11/18/16 20:03; Start 11/11/16 at 22:30 Hydralazine HCl (Apresoline) 25 mg BID PO Last administered on 11/17/16 07:27 ; Start 11/11/16 at 22:45; Stop 11/17/16 at 16:22; Status DC Lisinopril (Prinivil) 20 mg BID PO Last administered on 11/21/16 08:15; Start 11/11/16 at 22:45 Aspirin (Aspirin Enteric Coated) 81 mg DAILY PO Last administered on 11/21/16 08:14; Start 11/12/16 at 09:00 Carvedilol (Coreg) 6.25 mg BIDWMEALS PO Last administered on 11/18/16 07:28; Start 11/12/16 at 08:00; Stop 11/18/16 at 12:17; Status DC Vitamin D (Vitamin D3) 1,000 unit DAILY PO Last administered on 11/21/16 08:14 ; Start 11/12/16 at 09:00 Docusate Sodium (Colace) 100 mg PRN BID PRN PO CONSTIPATION; Start 11/12/16 at 07:30 Levothyroxine Sodium (Synthroid) 25 mcg DAILY07 PO Last administered on 05:45; Start 11/12/16 at 07:45; Stop 11/13/16 at 15:15; Status DC Polyethylene Glycol (miraLAX) 17 gm DAILY PO Last administered on 11/21/16 08: 17; Start 11/12/16 at 09:00 Tamsulosin HCl (Flomax) 0.4 mg DAILY PO Last administered on 11/21/16 08:14; Start 11/12/16 at 09:00 Non-Formulary Medication 2 puff BID IH ; Start 11/12/16 at 09:00; Stop 11/12/16 at 09:00; Status DC Pravastatin Sodium (Pravachol) 80 mg QHS PO Last administered on 11/20/16 20: 00; Start 11/12/16 at 21:00 Prednisone (Prednisone) 50 mg DAILY PO Last administered on 11/12/16 08:03; Start 11/12/16 at 09:00; Stop 11/12/16 at 16:59; Status DC Albuterol Sulfate (Ventolin) 2.5 mg RTQID NEB Last administered on 11/21/16 10 :31; Start 11/12/16 at 12:00; Stop 11/21/16 at 13:06; Status DC Budesonide (Pulmicort) 0.5 mg RTBID NEB Last administered on 11/21/16 10:31; Start 11/12/16 at 08:30 Pantoprazole Sodium (Protonix) 40 mg DAILYAC PO Last administered on 11/21/16 07:32; Start 11/13/16 at 07:30 Levothyroxine Sodium (Synthroid) 25 mcg DAILY06 PO Last administered on 03:39; Start 11/14/16 at 06:00 Sertraline HCl (Zoloft) 25 mg DAILY PO Last administered on 11/14/16 08:52; Start 11/14/16 at 09:00; Stop 11/14/16 at 18:15; Status DC Donepezil HCl (Aricept) 10 mg DAILY PO Last administered on 11/21/16 08:14; Start 11/14/16 at 09:00 Sertraline HCl (Zoloft) 50 mg DAILY PO Last administered on 11/21/16 08:14; Start 11/15/16 at 09:00 Mirtazapine (Remeron) 7.5 mg QHS PO Last administered on 11/20/16 20:01; Start 11/15/16 at 21:00 Acetaminophen (Tylenol) 650 mg PRN Q6HRS PRN PO PAIN / TEMP Last administered on 11/19/16 14:45; Start 11/16/16 at 23:30 Magnesium Hydroxide (Milk Of Magnesia) 2,400 mg PRN DAILY PRN PO CONSTIPATION; Start 11/16/16 at 23:30 Al Hydroxide/Mg Hydroxide (Mylanta Plus Xs) 30 ml PRN AFTMEALHC PRN PO DYSPEPSIA; Start 11/16/16 at 23:30 Multi-Ingredient Ointment (Analgesic [place]) 1 kathryn PRN QID PRN TP MUSCLE PAIN Last administered on 11/20/16 15:01; Start 11/16/16 at 23:30 Hydralazine HCl (Apresoline) 50 mg TID PO Last administered on 11/18/16 07:27 ; Start 11/17/16 at 21:00; Stop 11/18/16 at 12:16; Status DC Hydralazine HCl (Apresoline) 25 mg TID PO Last administered on 11/21/16 08:16 ; Start 11/18/16 at 14:00 Magnesium Oxide (Magnesium Oxide) 400 mg DAILY PO Last administered on 08:15; Start 11/20/16 at 17:00 Trazodone HCl (Desyrel) 50 mg QHS PO Last administered on 11/20/16 20:22; Start 11/20/16 at 21:00; Stop 11/21/16 at 18:28; Status DC Trazodone HCl (Desyrel) 50 mg PRN QHS PRN PO INSOMNIA; Start 11/20/16 at 16:45 ; Stop 11/21/16 at 18:28; Status DC Guaifenesin (MUCINEX ER with DM) 1 tab BID PO ; Start 11/21/16 at 12:45; Stop at 15:29; Status DC Albuterol/ Ipratropium (Duoneb) 3 ml BID92 NEB Last administered on 11/21/16 15:54; Start 11/21/16 at 14:00; Stop 11/24/16 at 13:59 Guaifenesin (Robitussin Dm) 10 ml TID PO Last administered on 11/21/16 13:38; Start 11/21/16 at 14:00; Stop 11/26/16 at 13:59 Active Scripts Active Reported Flomax (Tamsulosin Hcl) 0.4 Mg Cap.er.24h 0.4 Mg PO DAILY Seroquel (Quetiapine Fumarate) 25 Mg Tablet 25 Mg PO DAILY Pravastatin Sodium 80 Mg Tablet 80 Mg PO DAILY Miralax (Polyethylene Glycol 3350) 119 Gm Powder 17 Gm PO DAILY Lisinopril 20 Mg Tablet 20 Mg PO BID Levothyroxine Sodium 25 Mcg Tablet 25 Mcg PO DAILY07 Hydralazine Hcl 25 Mg Tablet 25 Mg PO BID Donepezil Hcl 5 Mg Tablet 5 Mg PO QHS Colace (Docusate Sodium) 100 Mg Capsule 100 Mg PO PRN BID PRN Vitamin D3 (Cholecalciferol (Vitamin D3)) 1,000 Unit Tablet 1,000 Unit PO DAILY Carvedilol 6.25 Mg Tablet 6.25 Mg PO BIDWMEALS Symbicort 160-4.5 Mcg Inhaler (Budesonide/Formoterol Fumarate) 10.2 Gm Hfa.aer.ad 2 Puff IH BID Aspir-Low (Aspirin) 81 Mg Tablet. 81 Mg PO DAILY Prednisone 50 Mg Tablet 50 Mg PO DAILY 5 Days Diagnosis: Problems: (1) Anxiety disorder (2) Dementia, vascular, with depression (3) Dementia, vascular, with delusions (4) Dementia in Alzheimer's disease with depression (5) Dementia in Alzheimer's disease with delusions (6) Impulse control disorder PATRIZIA HERBERT MD Nov 21, 2016 18:42
[2016-11-21] MEDS: PRAVASTATIN 20 MG TABLET. PO SCH (19:34)
[2016-11-21] MEDS: MIRTAZAPINE 7.5 MG TABLET. PO SCH (19:34)
[2016-11-21] MEDS: ACETAMINOPHEN 325 MG TABLET PO PRN (19:41)
[2016-11-21] MEDS: MELATONIN 3 MG TABLET PO PRN (19:41)
--- NOTE | 2016-11-22 03:09 | PN ---
DATE: 11/20/2016 This is a late entry for 11/20/2016 and covers the elements not covered in my initial note. HISTORY OF PRESENT ILLNESS: I met with the patient in the evening of 11/20/2016, slept 6-3/4 hours the previous evening. He was quite irritable "grumpy" in the morning per nursing report, did better after that. Also discussed the patient with social service staff about discharge plans back home with the providing 24-hour care either with in-home services or by herself. REVIEW OF SYSTEMS: Ambulation impaired. No CV, , pulmonary, eye, ENT system symptoms on review. He was perseverating, obsessive about wanting to go to the lower floor wanting to take a taxi home. MENTAL STATUS EXAM: Speech is coherent, abstraction fair, short term memory is impaired. Language function intact. Mood and affect remains a little anxious. He did sleep better previous evening. LABORATORY DATA: Reviewed. IMPRESSION: Unchanged from initial note. PLAN: Reviewed current psychotropics, drug interactions, risk/benefit ratio favors no further changes as of now, we will see how he does over the next day or so since he is sleeping better and if symptoms persist, we will make further changes. PATRIZIA HERBERT MD DR: SONIA/marianna JOB#: [id number] / [id number]
[2016-11-22] MEDS: LEVOTHYROXINE 25 MCG TABLET. PO SCH (06:07)
[2016-11-22 06:21] VITALS: BP 157/61
[2016-11-22] MEDS: PANTOPRAZOLE 40 MG TABLET. PO SCH (07:16)
[2016-11-22] MEDS: POLYETHYLENE GLYCOL 3350 17 GM PACKET. PO SCH (08:28)
[2016-11-22] MEDS: ASPIRIN ENTERIC COATED 81 MG TABLET.DR. PO SCH (08:28)
[2016-11-22] MEDS: MAGNESIUM OXIDE 400 MG TABLET PO SCH (08:28)
[2016-11-22] MEDS: DONEPEZIL HCL 10 MG TABLET PO SCH (08:30)
[2016-11-22] MEDS: TAMSULOSIN 0.4 MG CAP.ER.24H. PO SCH (08:30)
[2016-11-22] MEDS: SERTRALINE 50 MG TABLET. PO SCH (08:30)
[2016-11-22] MEDS: guaiFENesin DM 200MG/20MG 10 ML SYRUP PO SCH ×2 (08:30→14:21)
[2016-11-22] MEDS: CHOLECALCIFEROL (VITAMIN D3) 1,000 UNIT TABLET PO SCH (08:30)
[2016-11-22 08:36] VITALS: BP 124/60
[2016-11-22] MEDS: LISINOPRIL 20 MG TABLET PO SCH (08:36)
[2016-11-22] MEDS: IPRATRPIUM/ALBUTEROL 0.5/2.5MG 3 ML NEBU. NEB SCH (10:45)
[2016-11-22] MEDS: BUDESONIDE 0.5 MG/2 ML NEBU NEB SCH (10:45)
[2016-11-22 13:10] VITALS: BP 100/58
[2016-11-22] MEDS ORDERED: ACET325T9 PO (14:37)
[2016-11-22] MEDS ORDERED: MAG355OR17 PO (15:16)
[2016-11-22] MEDS ORDERED: MAGN2400 PO (15:17)
[2016-11-22] MEDS ORDERED: MAGN400T3 PO (15:17)
[2016-11-22] MEDS ORDERED: MELA3TAB2 PO (15:18)
[2016-11-22] MEDS ORDERED: MIRT15TA PO (15:19)
[2016-11-22] MEDS ORDERED: PANT40TA3 PO (15:20)
[2016-11-22] MEDS ORDERED: OLAN2.5T3 PO (15:20)
[2016-11-22] MEDS ORDERED: SERT50TA PO (15:21)
[2016-11-22 16:22] VITALS: BP 121/71
--- NOTE | 2016-11-22 18:19 | PDOC ---
Exam Dev Demential Exam: Dev Note: Please also refer to the separate dictated note~for this date of service dictated separately.~Patient seen individually. Discussed the patient with Nursing staff reviewed the chart.~Reviewed interim history and current functioning. Reviewed vital signs,~Labs/ Radiology~and current medications noted below. Continue current treatment with the changes noted in the dictated addendum note Assessment: Vital Signs: Vital Signs Date Time Temp Pulse Resp B/P (MAP) Pulse Ox O2 Delivery O2 Flow Rate FiO2 11/22/16 16:22 96.8 67 19 121/71 (88) 96 11/22/16 13:10 Nasal Cannula 2.0 I&O Intake and Output 11/22/16 07:00 Intake Total 1140 ml Balance 1140 ml Intake Oral 1140 ml # Voids 1 # Bowel Movements 1 Current Medications: Meds: Current Medications Donepezil HCl (Aricept) 5 mg QHS PO Last administered on 11/13/16 20:08; Start 11/11/16 at 22:45; Stop 11/14/16 at 18:15; Status DC Olanzapine (ZyPREXA ZYDIS) 2.5 mg PRN Q2HR PRN PO PSYCHOSIS Last administered on 11/21/16 09:43; Start 11/11/16 at 22:30; Stop 11/22/16 at 17:20; Status DC Melatonin 3 mg PRN QHS PRN PO INSOMNIA Last administered on 11/21/16 19:41; Start 11/11/16 at 22:30; Stop 11/22/16 at 17:20; Status DC Hydralazine HCl (Apresoline) 25 mg BID PO Last administered on 11/17/16 07:27 ; Start 11/11/16 at 22:45; Stop 11/17/16 at 16:22; Status DC Lisinopril (Prinivil) 20 mg BID PO Last administered on 11/22/16 08:36; Start 11/11/16 at 22:45; Stop 11/22/16 at 17:20; Status DC Aspirin (Aspirin Enteric Coated) 81 mg DAILY PO Last administered on 11/22/16 08:28; Start 11/12/16 at 09:00; Stop 11/22/16 at 17:20; Status DC Carvedilol (Coreg) 6.25 mg BIDWMEALS PO Last administered on 11/18/16 07:28; Start 11/12/16 at 08:00; Stop 11/18/16 at 12:17; Status DC Vitamin D (Vitamin D3) 1,000 unit DAILY PO Last administered on 11/22/16 08:30 ; Start 11/12/16 at 09:00; Stop 11/22/16 at 17:20; Status DC Docusate Sodium (Colace) 100 mg PRN BID PRN PO CONSTIPATION; Start 11/12/16 at 07:30; Stop 11/22/16 at 17:20; Status DC Levothyroxine Sodium (Synthroid) 25 mcg DAILY07 PO Last administered on 05:45; Start 11/12/16 at 07:45; Stop 11/13/16 at 15:15; Status DC Polyethylene Glycol (miraLAX) 17 gm DAILY PO Last administered on 11/22/16 08: 28; Start 11/12/16 at 09:00; Stop 11/22/16 at 17:20; Status DC Tamsulosin HCl (Flomax) 0.4 mg DAILY PO Last administered on 11/22/16 08:30; Start 11/12/16 at 09:00; Stop 11/22/16 at 17:20; Status DC Non-Formulary Medication 2 puff BID IH ; Start 11/12/16 at 09:00; Stop 11/12/16 at 09:00; Status DC Pravastatin Sodium (Pravachol) 80 mg QHS PO Last administered on 11/21/16 19: 34; Start 11/12/16 at 21:00; Stop 11/22/16 at 17:20; Status DC Prednisone (Prednisone) 50 mg DAILY PO Last administered on 11/12/16 08:03; Start 11/12/16 at 09:00; Stop 11/12/16 at 16:59; Status DC Albuterol Sulfate (Ventolin) 2.5 mg RTQID NEB Last administered on 11/21/16 10 :31; Start 11/12/16 at 12:00; Stop 11/21/16 at 13:06; Status DC Budesonide (Pulmicort) 0.5 mg RTBID NEB Last administered on 11/22/16 10:45; Start 11/12/16 at 08:30; Stop 11/22/16 at 17:20; Status DC Pantoprazole Sodium (Protonix) 40 mg DAILYAC PO Last administered on 11/22/16 07:16; Start 11/13/16 at 07:30; Stop 11/22/16 at 17:20; Status DC Levothyroxine Sodium (Synthroid) 25 mcg DAILY06 PO Last administered on 06:07; Start 11/14/16 at 06:00; Stop 11/22/16 at 17:20; Status DC Sertraline HCl (Zoloft) 25 mg DAILY PO Last administered on 11/14/16 08:52; Start 11/14/16 at 09:00; Stop 11/14/16 at 18:15; Status DC Donepezil HCl (Aricept) 10 mg DAILY PO Last administered on 11/22/16 08:30; Start 11/14/16 at 09:00; Stop 11/22/16 at 17:20; Status DC Sertraline HCl (Zoloft) 50 mg DAILY PO Last administered on 11/22/16 08:30; Start 11/15/16 at 09:00; Stop 11/22/16 at 17:20; Status DC Mirtazapine (Remeron) 7.5 mg QHS PO Last administered on 11/21/16 19:34; Start 11/15/16 at 21:00; Stop 11/22/16 at 17:20; Status DC Acetaminophen (Tylenol) 650 mg PRN Q6HRS PRN PO PAIN / TEMP Last administered on 11/21/16 19:41; Start 11/16/16 at 23:30; Stop 11/22/16 at 17:20; Status DC Magnesium Hydroxide (Milk Of Magnesia) 2,400 mg PRN DAILY PRN PO CONSTIPATION; Start 11/16/16 at 23:30; Stop 11/22/16 at 17:20; Status DC Al Hydroxide/Mg Hydroxide (Mylanta Plus Xs) 30 ml PRN AFTMEALHC PRN PO DYSPEPSIA; Start 11/16/16 at 23:30; Stop 11/22/16 at 17:20; Status DC Multi-Ingredient Ointment (Analgesic [place]) 1 kathryn PRN QID PRN TP MUSCLE PAIN Last administered on 11/20/16 15:01; Start 11/16/16 at 23:30; Stop 11/22/16 at 17:20; Status DC Hydralazine HCl (Apresoline) 50 mg TID PO Last administered on 11/18/16 07:27 ; Start 11/17/16 at 21:00; Stop 11/18/16 at 12:16; Status DC Hydralazine HCl (Apresoline) 25 mg TID PO Last administered on 11/22/16 14:21 ; Start 11/18/16 at 14:00; Stop 11/22/16 at 15:10; Status DC Magnesium Oxide (Magnesium Oxide) 400 mg DAILY PO Last administered on 08:28; Start 11/20/16 at 17:00; Stop 11/22/16 at 17:20; Status DC Trazodone HCl (Desyrel) 50 mg QHS PO Last administered on 11/20/16 20:22; Start 11/20/16 at 21:00; Stop 11/21/16 at 18:28; Status DC Trazodone HCl (Desyrel) 50 mg PRN QHS PRN PO INSOMNIA; Start 11/20/16 at 16:45 ; Stop 11/21/16 at 18:28; Status DC Guaifenesin (MUCINEX ER with DM) 1 tab BID PO ; Start 11/21/16 at 12:45; Stop at 15:29; Status DC Albuterol/ Ipratropium (Duoneb) 3 ml BID92 NEB Last administered on 11/22/16 10:45; Start 11/21/16 at 14:00; Stop 11/22/16 at 17:20; Status DC Guaifenesin (Robitussin Dm) 10 ml TID PO Last administered on 11/22/16 14:21; Start 11/21/16 at 14:00; Stop 11/22/16 at 17:20; Status DC Hydralazine HCl (Apresoline) 25 mg TID PO ; Start 11/22/16 at 21:00; Stop at 21:00; Status DC Active Scripts Active Reported Zoloft (Sertraline Hcl) 50 Mg Tablet 50 Mg PO DAILY Protonix (Pantoprazole Sodium) 40 Mg Tablet.dr 40 Mg PO DAILYAC Zyprexa (Olanzapine) 2.5 Mg Tablet 2.5 Mg PO PRN Q2HR PRN Remeron (Mirtazapine) 15 Mg Tablet 7.5 Mg PO QHS Melatonin 3 Mg Tablet 3 Mg PO PRN QHS PRN Magnesium Oxide 400 Mg Tablet 400 Mg PO DAILY Milk Of Magnesia (Magnesium Hydroxide) 2,400 Mg/10 Ml Oral.susp 2,400 Mg PO PRN DAILY PRN Advanced Antacid Liquid (Mag Hydrox/Al Hydrox/Simeth) 355 Ml Oral.susp 30 Ml PO PRN AFTMEALHC PRN Tylenol (Acetaminophen) 325 Mg Tablet 650 Mg PO Q6HRS PRN Flomax (Tamsulosin Hcl) 0.4 Mg Cap.er.24h 0.4 Mg PO DAILY Pravastatin Sodium 80 Mg Tablet 80 Mg PO QHS Miralax (Polyethylene Glycol 3350) 119 Gm Powder 17 Gm PO DAILY Lisinopril 20 Mg Tablet 20 Mg PO BID Levothyroxine Sodium 25 Mcg Tablet 25 Mcg PO DAILY07 Donepezil Hcl 5 Mg Tablet 10 Mg PO DAILY Colace (Docusate Sodium) 100 Mg Capsule 100 Mg PO PRN BID PRN Vitamin D3 (Cholecalciferol (Vitamin D3)) 1,000 Unit Tablet 1,000 Unit PO DAILY Aspir-Low (Aspirin) 81 Mg Tablet. 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
[2016-11-22] MEDS ORDERED: hydrALAZINE 25 MG TABLET PO SCH (21:00)
--- NOTE | 2016-11-23 01:57 | PN ---
DATE: 11/21/2016 This late entry covers elements not covered in my initial note of 11/21/2016. The patient slept 6-1/4 hours previous evening, is little more confused, demanding, agitated, tearful at times. I had a lengthy conversation with the patient's , Lupe. feels patient's confusion, anxiety is worse on the trazodone and she has experienced and another family members as well and wanted it discontinued. We will go ahead and stop it. Discussed with the patient's about the patient's diagnosis at some length, current treatment. She is quite insistent on having him discharged 11/22/2016 as she has 24-hour care at home for him. REVIEW OF SYSTEMS: No CV, , pulmonary, eye, ENT system symptoms on review. Gait unsteady with a walker. MENTAL STATUS EXAM: Oriented to himself and situation. Speech coherent, abstraction fair, computation impaired, language function intact. Mood and affect somewhat anxious, labile at times. No active suicidal or homicidal ideation. LABORATORY DATA: Reviewed. IMPRESSION: Unchanged from initial note. PLAN: Continue current psychotropics carefully reviewed the drug interactions, risk, benefit ratio and we will stop the trazodone, maintain the rest unchanged and perhaps can go along with how the wants to transition home to outpatient treatment starting 11/22/2016. PATRIZIA HERBERT MD DR: SONIA/marianna JOB#: [id number] / [id number]
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
== END 2016-11-22 16:45 | disposition home or self-care (01) | DRG 884 ==
LOC: GEROPSY 21:23
PROVIDERS: ADMIT Psychiatry & Neurology Psychiatry; ATTEND Psychiatry & Neurology Psychiatry
DX: F01.51 Vascular dementia, unspecified severity, with behavioral disturbance (principal); J44.9 Chronic obstructive pulmonary disease, unspecified; F02.81 Dementia in other diseases classified elsewhere, unspecified severity, with behavioral disturbance; G30.0 Alzheimer's disease with early onset; I10 Essential (primary) hypertension; K21.9 Gastro-esophageal reflux disease without esophagitis; K27.9 Peptic ulcer, site unspecified, unspecified as acute or chronic, without hemorrhage or perforation; F63.9 Impulse disorder, unspecified; F32.9 Major depressive disorder, single episode, unspecified; F41.9 Anxiety disorder, unspecified; E03.9 Hypothyroidism, unspecified; E78.5 Hyperlipidemia, unspecified; F22 Delusional disorders; Z66 Do not resuscitate; Z79.899 Other long term (current) drug therapy; Z87.11 Personal history of peptic ulcer disease
CPT/HCPCS: 36415; 70450; 71010; 80053; 80061; 81001; 82306; 82607; 83036; 83540; 83550; 83735; 84436; 84443; 84480; 85025; 86592; 86593; 93005; 94640; 94760; J7512; J7613; J7620; J7626; 92610; 97110; 97116; 97530; 97535